=== PATIENT | female | born 1975 | race Hispanic/Latino ===

== ENCOUNTER 2022-11-01 18:15 | Emergency (ER) | payer OTHER, SELFPAY ==
[2022-11-01 18:30] VITALS: BP 150/86; PULSE 75; RESP 16; TEMP 36.1; O2SAT 100
[2022-11-01 18:35] VITALS: BP 150/86; PULSE 75; RESP 16; TEMP 36.1; O2SAT 100
--- NOTE | 2022-11-01 18:35 | ED.GENADULT ---
HPI - General Adult General Chief complaint: Unspecified Stated complaint: blurry vision, elevated heart rate, lightheaded Time Seen by Provider: 11/01/22 18:28 Source: patient Mode of arrival: ambulatory Limitations: no limitations History of Present Illness HPI narrative: 47-year-old female presents with concern for an acute episode of headache, blurry vision, lightheadedness, neck redness, elevated heart rate, pressure and her eyes and her head. She reports symptoms have improved but have not resolved. She reports she took Tylenol and took an estrogen tablet that she had at home. She denies history of high blood pressure. She reports similar episodes to this that have happened 3 times in the last several months. She called her primary doctor who told her to go to the emergency room MD complaint: Headache Related Data Home Medications Medication Instructions Recorded Confirmed levothyroxine 125 mcg tablet 125 mcg PO DAILY 11/01/22 11/01/22 (Synthroid) Allergies Allergy/AdvReac Type Severity Reaction Status Date / Time No Known Allergies Allergy Unverified 11/01/22 18:29 Review of Systems Review of Systems: CONSTITUTIONAL: Denies malaise, chills, sweats, or fever. EYES: Reports visual changes, pain and pressure behind her eyes ENT: Denies rhinorrhea, congestion, sinus pain, otalgia or sore throat. CARDIOVASCULAR: Denies chest pain, palpitations, or edema. RESPIRATORY: Denies cough or dyspnea. SKIN: Reports skin redness MUSCULOSKELETAL: Denies back pain, joint pain, or myalgia. NEUROLOGIC: Denies numbness, weakness. Reports lightheadedness, dizziness, headache. PSYCHIATRIC: Denies anxiety or depression. All systems reviewed & are unremarkable except as noted in HPI and below PMFSH Comments At time of signature, agree with nursing past medical, surgical, social and family history. There is no relevant family history pertinent to the presenting complaint Exam Narrative: GENERAL: Well-appearing, well-nourished, and in no acute distress. HEAD: Normocephalic, atraumatic. EYES: PERRLA, sclera clear, and EOMI. No nystagmus. ENT: Nares clear, turbinates pink, no rhinorrhea or epistaxis. Mucous membranes moist. TM pearly castaneda with sharp light reflex bilaterally; no tragal tenderness. Oropharynx without erythema or lesions. Tonsils not enlarged and without exudate. NECK: Supple. No lymphadenopathy. CHEST: No respiratory distress. Clear to auscultation. No bony deformities, no asymmetry. Speaks in full sentences. HEART: Regular rate and rhythm. No murmur heard. Normal peripheral pulses. EXTREMITIES: Normal range of motion. No edema. Normal strength and sensation. SKIN: Warm, dry, no visible rash. NEURO: Alert and oriented x3. No focal deficits. Cranial nerves II through XII grossly intact PSYCH: Normal mood and affect Course Course Emergency Course: Patient is aware of, understands and agrees to reasons to be transferred to the emergency room. Anticipatory guidance given. Patient agrees to proceed via private vehicle directly to the emergency department. Portions of this record may have been created with voice recognition software Level of Care: Express Care Visit Vital Signs Vital signs: Vital Signs Temperature 97.0 F L 11/01/22 18:30 Pulse Rate 75 11/01/22 18:30 Respiratory Rate 16 11/01/22 18:30 Blood Pressure 150/86 H 11/01/22 18:30 Pulse Oximetry 100 11/01/22 18:30 Oxygen Delivery Room Air 11/01/22 18:30 Temperature 97.0 F L 11/01/22 18:30 Pulse Rate 75 11/01/22 18:30 Respiratory Rate 16 11/01/22 18:30 Blood Pressure 150/86 H 11/01/22 18:30 Pulse Oximetry 100 11/01/22 18:30 Oxygen Delivery Room Air 11/01/22 18:30 Reviewed. Transfer Transfered to: [facility] Transportation: Other (Private vehicle) Transfer rationale: Headache, dizziness Accepting physician: Dmitriy Medical Decision Making [facility] Narrative Medical decision making narrative: Exam findings a
== END 2022-11-01 18:38 | disposition short-term general hospital (02) ==
PROVIDERS: Emergency Provider Nurse Practitioner; PCP Internal Medicine Gastroenterology
DX: R51.9 Headache, unspecified (principal)
CPT/HCPCS: 99203; G0463

== ENCOUNTER 2022-11-01 18:55 | Emergency (ER) | payer OTHER, SELFPAY ==
[2022-11-01 19:05] VITALS: BP 145/81; PULSE 83; RESP 16; TEMP 37.2; O2SAT 100
--- NOTE | 2022-11-01 19:12 | ECG_ITS ---
Measurements Intervals [place] Rate: 71 P: 41 LA: 181 QRS: 0 QRSD: 88 T: 1 QT: 375 QTc: 410 Interpretive Statements SINUS RHYTHM WITH SINUS ARRHYTHMIA MODERATE VOLTAGE CRITERIA FOR LVH, CONSIDER NORMAL VARIANT [MEETS CRITERIA IN ONE OF: R(aVL), S(V1), R(V5), R(V5/V6)+S(V1)] CAN NOT RULE OUT ANTERIOR INFARCTION NONSPECIFIC T-WAVE ABNORMALITY ABNORMAL ECG NO PREVIOUS ECG AVAILABLE FOR COMPARISON Electronically Signed On 11-02-2022 14:09:39 [employer] ARCHITECT CONSULTANT by Jonathan Do M.D.
[2022-11-02 00:08] VITALS: BP 128/80; PULSE 75
[2022-11-02 00:11] VITALS: BP 131/94; PULSE 83
[2022-11-02 00:12] LABS: Basophils Percent Auto 0.3 % (0.2-1.2); Eosinophils Absolute Auto 0.1 K/mm3 (0-0.3); Eosinophils Percent Auto 0.9 % (0-4.4); Hematocrit 38.7 % (37.0-47.0); Hemoglobin 12.3 g/dL (12.0-15.0); Immature Granulocyte Absolute 0.01 K/mm3 (0.00-0.031); Immature Granulocyte Percent A 0.2 % (0-0.5); Lymphocytes Absolute Auto 1.68 K/mm3 (0.9-3.2); Lymphocytes Percent Auto 25.7 % (18.3-44.2); Mean Corpuscular HGB Conc 31.8 g/dl (32-36); Mean Corpuscular Hemoglobin 29.7 pg (26-34); Mean Corpuscular Volume 93.5 fl (80-100); Mean Platelet Volume 10.7 fl (7.4-10.4); Monocytes Absolute Auto 0.4 K/mm3 (0.1-0.6); Monocytes Percent Auto 6.3 % (2.6-8.5); Neutrophils Absolute Auto 4.4 K/mm3 (1.3-6.7); Neutrophils Percent Auto 66.6 % (45.5-73.1); Platelet Count Result 196 k/mm3 (150-375); Red Blood Count 4.14 M/mm3 (4.2-5.4); Red Cell Distribution Width 14.8 % (11.5-14.5); White Blood Count 6.5 K/mm3 (4.5-10.0)
[2022-11-02 00:13] VITALS: BP 134/105; PULSE 76
[2022-11-02 00:23] LABS: Alanine Aminotransferase 19 U/L (6-35); Albumin Level 4.3 g/dL (3.5-5.1); Alkaline Phosphatase 73 U/L (38-126); Anion Gap 2 mmol/L (8-16); Aspartate Amino Transferase 27 U/L (14-36); Bilirubin,Total 0.6 mg/dL (0.2-1.3); Blood Urea Nitrogen 12 mg/dL (7-17); Calcium 8.8 mg/dL (8.4-10.2); Carbon Dioxide 31 mmol/L (22-30); Chloride 106 mmol/L (98-107); Estimated CRCL calculation 92 ml/min; Estimated Glomerular Filt Rate > 60; Glucose 89 mg/dL (65-110); Lactic Acid Reflex 0.5 mmol/L (0.7-2.0); Potassium 3.6 mmol/L (3.4-5.0); Sodium 139 mmol/L (137-145)
[2022-11-02 00:29] LABS: Appearance Urine Clear (Clear); Bilirubin Urine Negative (Negative); Blood Urine Trace-intact (Negative); Color Urine Yellow (Yellow); Glucose Urine UA Negative (Negative); Ketones Urine 1+ mg/dL (Negative); Leukocyte Esterase Ur Negative LEU/UL (Negative); Nitrate Urine Negative (Negative); Protein Urine Negative (Negative); Specific Grav Ur 1.025 (1.001-1.035); Urobilinogen Urine 0.2 mg/dL (<2.0)
[2022-11-02 00:33] LABS: Bacteria Urine Trace /hpf; Mucus Urine Rare /lpf; Squamous Epithelial Cell Urine Many /hpf (Few); WBC Urine 0-3 /hpf
[2022-11-02 00:40] LABS: Troponin I < 0.012 ng/mL (0.000-0.034)
[2022-11-02 00:41] LABS: Add Urine Microscopic? YES
--- NOTE | 2022-11-02 01:38 | ED.GENADULT ---
HPI - General Adult General Chief complaint: Neuro Symptoms/Deficit Stated complaint: headache, blurry vision, elevated HR 25 min Time Seen by Provider: 11/01/22 23:23 History of Present Illness HPI narrative: Patient 47-year-old female who presents the emergency department with chief complaint of lightheadedness and palpitations. The patient reports she has been having some episodes where she feels as though her heart is beating heavy and then she becomes lightheaded and had some blurry vision. Patient reports her symptoms have resolved now that she is feeling much better. Patient denies chest pain denies shortness of breath patient denies focal neurological deficit. Related Data Home Medications Medication Instructions Recorded Confirmed levothyroxine 125 mcg tablet 125 mcg PO DAILY 11/01/22 11/01/22 (Synthroid) Allergies Allergy/AdvReac Type Severity Reaction Status Date / Time No Known Allergies Allergy Unverified 11/01/22 18:29 Review of Systems Review of Systems: A 10 system review of systems was completed on the patient and is negative except for what is stated in the HPI. Nursing and ancillary documentation was reviewed. Exam Narrative: GENERAL: Well-appearing, well-nourished, and in no acute distress. HEAD: Normocephalic, atraumatic. EYES: PERRLA and EOMI. ENT: Nares clear, no rhinorrhea or epistaxis. Mucous membranes moist. NECK: Supple. CHEST: Clear to auscultation. No respiratory distress. HEART: Regular rate and rhythm. No murmur heard. Normal peripheral pulses. ABDOMEN: Soft, nontender, nondistended, normal active bowel sounds. EXTREMITIES: Normal range of motion. No edema. SKIN: Warm, dry, no rash. NEURO: No focal deficits. Alert and oriented x3. NIH 0 PSYCH: Normal mood and affect. Course Course Emergency Course: Differential diagnosis includes dysrhythmia, electrolyte abnormality anemia, acute visual disturbance, EKG is sinus rhythm rate of [address] elevation or ST depression The patient has no focal neurological deficits in the emergency department urinalysis showed no evidence of UTI electrolytes showed a potassium of 3.6 and a normal lactic acid magnesium was 2.0 CBC showed a hemoglobin of 12.3 and a white blood cell count of 6.5. Patient be discharged home to follow-up with her primary care provider Vital Signs Vital signs: Vital Signs Temperature 37.2 C 11/01/22 19:05 Pulse Rate 83 11/01/22 19:05 Respiratory Rate 16 11/01/22 19:05 Blood Pressure 145/81 H 11/01/22 19:05 Pulse Oximetry 100 11/01/22 19:05 Oxygen Delivery Room Air 11/01/22 19:05 Temperature 37.2 C 11/01/22 19:05 Pulse Rate 76 11/02/22 00:13 Respiratory Rate 16 11/01/22 19:05 Blood Pressure 134/105 H 11/02/22 00:13 Pulse Oximetry 100 11/01/22 19:05 Oxygen Delivery Room Air 11/01/22 19:05 Medical Decision Making Vital Signs Vital Signs: Vital Signs Temperature 37.2 C 11/01/22 19:05 Pulse Rate 83 11/01/22 19:05 Respiratory Rate 16 11/01/22 19:05 Blood Pressure 145/81 H 11/01/22 19:05 Pulse Oximetry 100 11/01/22 19:05 Oxygen Delivery Room Air 11/01/22 19:05 Temperature 37.2 C 11/01/22 19:05 Pulse Rate 76 11/02/22 00:13 Respiratory Rate 16 11/01/22 19:05 Blood Pressure 134/105 H 11/02/22 00:13 Pulse Oximetry 100 11/01/22 19:05 Oxygen Delivery Room Air 11/01/22 19:05 Lab Data 11/02/22 00:00 11/02/22 00:00 Labs: Lab Results 11/02/22 11/02/22 11/02/22 Range/Units 00:00 00:00 00:00 WBC 6.5 (4.5-10.0) K/mm3 RBC 4.14 L (4.2-5.4) M/mm3 Hgb 12.3 (12.0-15.0) g/dL Hct 38.7 (37.0-47.0) % MCV 93.5 (80-100) fl MCH 29.7 (26-34) pg MCHC 31.8 L (32-36) g/dl RDW 14.8 H (11.5-14.5) % Plt Count 196 (150-375) k/mm3 MPV 10.7 H (7.4-10.4) fl Immature Gran % (Auto) 0.2 (0-0.5) % Neut % (Auto) 66.6 (45.5-73.1) % Lymph % (Auto) 25.7
[2022-11-02 02:01] VITALS: BP 130/90; PULSE 77; RESP 20; O2SAT 99
== END 2022-11-02 02:03 | disposition home or self-care (01) ==
PROVIDERS: Emergency Provider Emergency Medicine
DX: R00.2 Palpitations (principal); R94.31 Abnormal electrocardiogram [ECG] [EKG]
CPT/HCPCS: 36415; 80053; 81001; 83605; 83735; 84484; 85025; 93005; 99284

== ENCOUNTER 2024-06-06 21:25 | Emergency (ER) | payer OTHER, SELFPAY ==
[2024-06-06 21:30] VITALS: BP 151/90; PULSE 94; RESP 16; TEMP 36.6; O2SAT 100
[2024-06-06] MEDS: CLINDAMYCIN 600 MG/D5W 50 ML 600 MG/50 ML PIGGYBACK 100 MG IVPB (22:07)
[2024-06-06] MEDS: TETANUS,DIPHTHERIA,AC PERTUSSIS ADULT (0.5 ML) BOOSTRIX IM (22:08)
[2024-06-06 22:20] LABS: Basophils Percent Auto 0.3 % (0.2-1.2); Eosinophils Absolute Auto 0.1 K/mm3 (0-0.3); Hematocrit 41.1 % (37.0-47.0); Hemoglobin 13.3 g/dL (12.0-15.0); Immature Granulocyte Absolute 0.03 K/mm3 (0.00-0.031); Immature Granulocyte Percent A 0.4 % (0-0.5); Lymphocytes Absolute Auto 1.92 K/mm3 (0.9-3.2); Lymphocytes Percent Auto 24.9 % (18.3-44.2); Mean Corpuscular HGB Conc 32.4 g/dl (32-36); Mean Corpuscular Hemoglobin 30.2 pg (26-34); Mean Corpuscular Volume 93.2 fl (80-100); Mean Platelet Volume 11.4 fl (7.4-10.4); Monocytes Absolute Auto 0.6 K/mm3 (0.1-0.6); Monocytes Percent Auto 7.3 % (2.6-8.5); Neutrophils Absolute Auto 5.1 K/mm3 (1.3-6.7); Neutrophils Percent Auto 66.1 % (45.5-73.1); Platelet Count Result 198 k/mm3 (150-375); Red Blood Count 4.41 M/mm3 (4.2-5.4); Red Cell Distribution Width 14.7 % (11.5-14.5); White Blood Count 7.7 K/mm3 (4.5-10.0)
--- NOTE | 2024-06-06 22:28 | ED.SKABFB ---
HPI - Skin/Abscess/Foreign Bdy General Chief complaint: Extremity Injury, Lower Stated complaint: left ankle pain Time Seen by Provider: 06/06/24 21:41 History of Present Illness HPI narrative: Patient got her leg caught around a dog leash about a week ago, started noticing some slight redness, saw her PCP who prescribed mupirocin ointment however over last few days it has gotten more red and swollen. No systemic symptoms, no nausea vomiting or fevers or chills. Related Data Home Medications Medication Instructions Recorded Confirmed levothyroxine 125 mcg tablet 125 mcg PO DAILY 11/01/22 11/01/22 (Synthroid) Allergies Allergy/AdvReac Type Severity Reaction Status Date / Time No Known Allergies Allergy Verified 06/06/24 21:35 Review of Systems Review of Systems: All systems reviewed & are unremarkable except as noted in HPI and below Exam Narrative: EXAMINATION OF ORGAN SYSTEMS/BODY AREAS: Constitutional: Vital signs per nursing GENERAL:[No acute distress, non-toxic appearing.] HEAD: Normal with no signs of head trauma. EYES: EOMI, conjunctiva normal ENT: Hearing grossly intact LUNGS: Nonlabored breathing. HEART: [Regular rate and rhythm] ABD: [Soft], [nontender to palpation] EXT: Normal range of motion SKIN: Circumferential wound around left lower leg, no purulent discharge, there is surrounding redness and slight swelling NEURO: [Alert and oriented x 3. No gross focal sensory or strength deficits.] PSYCH: Normal affect Course Vital Signs Vital signs: Vital Signs Temperature 97.8 F 06/06/24 21:30 Pulse Rate 94 06/06/24 21:30 Respiratory Rate 16 06/06/24 21:30 Blood Pressure 151/90 H 06/06/24 21:30 Pulse Oximetry 100 06/06/24 21:30 Oxygen Delivery Room Air 06/06/24 21:30 Temperature 98.2 F 06/06/24 22:40 Pulse Rate 68 06/06/24 22:40 Respiratory Rate 13 06/06/24 22:40 Blood Pressure 123/71 06/06/24 22:40 Pulse Oximetry 100 06/06/24 22:40 Oxygen Delivery Room Air 06/06/24 21:30 MDM - Skin/Abscess/Foreign Bdy MDM Narrative Medical decision making narrative: Patient with a wound to her left lower leg has become infected, she is otherwise well-appearing without any symptoms. Given dose of IV antibiotics here and will be given course of oral antibiotics to cover cellulitis. Labs are within acceptable limits and I do feel she is stable for discharge. Return precautions are discussed. Patient agrees with this plan. Lab Data 06/06/24 22:09 06/06/24 22:09 Labs: Lab Results 06/06/24 Range/Units 22:09 WBC 7.7 (4.5-10.0) K/mm3 RBC 4.41 (4.2-5.4) M/mm3 Hgb 13.3 (12.0-15.0) g/dL Hct 41.1 (37.0-47.0) % MCV 93.2 (80-100) fl MCH 30.2 (26-34) pg MCHC 32.4 (32-36) g/dl RDW 14.7 H (11.5-14.5) % Plt Count 198 (150-375) k/mm3 MPV 11.4 H (7.4-10.4) fl Immature Gran % (Auto) 0.4 (0-0.5) % Neut % (Auto) 66.1 (45.5-73.1) % Lymph % (Auto) 24.9 (18.3-44.2) % [place] % (Auto) 7.3 (2.6-8.5) % Eos % (Auto) 1.0 (0-4.4) % Baso % (Auto) 0.3 (0.2-1.2) % Lymph # (Auto) 1.92 (0.9-3.2) K/mm3 [place] # (Auto) 0.6 (0.1-0.6) K/mm3 Eos # (Auto) 0.1 (0-0.3) K/mm3 Baso # (Auto) 0.0 (0.0-0.1) K/mm3 Abs Immat Gran (auto) 0.03 (0.00-0.031) K/mm3 Absolute Neuts (auto) 5.1 (1.3-6.7) K/mm3 Absolute Nucleated RBC 0.000 (0.0-0.012) K/mm3 Nucleated RBC % 0.0 (0.0-0.2) % Sodium 139 (137-145) mmol/L Potassium 3.6 (3.4-5.0) mmol/L Chloride 105 (98-107) mmol/L Carbon Dioxide 23 (22-30) mmol/L Anion Gap 11 (4-12) mmol/L BUN 20 H (7-17) mg/dL Creatinine 0.60 L (0.7-1.0) mg/dL Estim Creat Clear Calc 106 ml/min Estimated GFR > 60 (59 - ) Glucose 91 (65-110) mg/dL Calcium 9.1 (8.4-10.2) mg/dL Discharge Plan Discharge Clinical Impression: Cellulitis Patient Disposition: Home, Self-Care Condition: Stable Instructions: Antibiotic F
[2024-06-06 22:29] LABS: Anion Gap 11 mmol/L (4-12); Blood Urea Nitrogen 20 mg/dL (7-17); Calcium 9.1 mg/dL (8.4-10.2); Carbon Dioxide 23 mmol/L (22-30); Chloride 105 mmol/L (98-107); Estimated CRCL calculation 106 ml/min; Estimated Glomerular Filt Rate > 60; Glucose 91 mg/dL (65-110); Potassium 3.6 mmol/L (3.4-5.0); Sodium 139 mmol/L (137-145)
[2024-06-06 22:40] VITALS: BP 123/71; PULSE 68; RESP 13; TEMP 36.8; O2SAT 100
== END 2024-06-06 22:45 | disposition home or self-care (01) ==
LOC: ANHED 22:38
PROVIDERS: Emergency Provider Emergency Medicine
DX: L03.116 Cellulitis of left lower limb (principal); Z23 Encounter for immunization
CPT/HCPCS: 36415; 80048; 85025; 87040; 90471; 90715; 96365; 99284

== ENCOUNTER 2025-02-26 15:49 | Outpatient (CLI) | payer OTHER, SELFPAY ==
--- NOTE | ~2025-02-26 | MM_ITS ---
EXAMINATION: MM screening ab BI w jamaal HISTORY: Screening TECHNIQUE: Craniocaudal and mediolateral oblique 3-D tomosynthesis images were obtained and synthetic 2-D images were generated. CAD analysis was submitted and interpreted. COMPARISON: No prior mammogram is available for comparison at this institution. BREAST PARENCHYMAL COMPOSITION: Dense: The breasts are heterogeneously dense, which may obscure small masses FINDINGS: There is no evidence of suspicious mass, calcification, or architectural distortion to sugg est malignancy in either breast. There has been no suspicious interval change. IMPRESSION: 1. No mammographic evidence of malignancy. 2. Recommend routine screening mammography in one year. BI-RADS Category 1: Negative Reviewed, dictated and finalized at location A.
--- OUTSIDE RECORDS SUMMARY | 2025-02-26 16:38 | XMS_ITS | Clinical Summary ---
Author Organization [facility] [employer] Address [address] [place] [address] Care Team Providers Care Machine Tool Mechanic Name Role Phone Kt Jones Primary Care Provider Source Comments [facility] [employer],non-owned Affiliates and Associated Physician Practices is amultiple site organization consisting of ambulatory clinics and hospital sitesin [place], [place], [place] and [place]. This disclosure is being madepursuant to the Care Everywhere program and may not contain all information available regarding this patient. Last updated 18.[facility] [employer] Allergies Active Allergy Reactions Criticality Noted Date Comments Latex Unknown 12/15/2022 Medications * Be aware that medications may not be up to date on this document. Alwaysverify current medications with the patient. Synthroid 125 MCG tablet Take 1 (one) tablet by mouth once daily 12/22/2023 Active Active Problems Problem Noted Date Diagnosed Date AMA (advanced maternal age) multigravida 35+, first trimester 01/30/2018 Other specified hypothyroidism 01/30/2018 Hypothyroidism affecting 09/12/2017 Maternal HPV (human papillomavirus) 05/23/2017 Overview (03/21/2018): per Dr. Jordan's records 19 weeks gestation of Hypothyroidism affecting in second [facility] Encounter for screening for cervical l ength Resolved Problems Problem Noted Date Diagnosed Date Resolved Date History of delivery, currently in first trimester 01/30/2018 03/21/2018 Family History Medical History Relation Name Comments Cancer - Other Father unsure what t ype Other Mother alive and well Relation Name Status Comments Father Alive Mother Alive Social History Tobacco Use Types Packs/Day Years Used Date Smoking Tobacco: Never Smokeless Tobacco: Never Tobacco Cessation:Counseling Given: No Alcohol Use Standard Drinks/Week Comments No 0 (1 standard drink = 0.6 oz pur e alcohol) Comments No Sex and Gender Information Value Date Recorded Sex Assigned at Not on file Legal Sex Female 2:09 PM CDT Gender Identity Not on file Sexual Orientation Not on file 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 Not on file Not on file Not on file Last Filed Vital Signs Vital Sign Reading Time Taken Comments Blood Pressure 125/85 04/05/2024 2:08 PM CDT Pulse 64 04/05/2024 2:08 PM CDT Temperature 36.7 C (98.1 F) 04/05/2024 2:08 PM CDT Respiratory Rate 16 04/28/2017 7:06 PM CDT Oxygen Saturation 98% 04/05/2024 2:08 PM CDT Inhaled Oxygen Concentration - - Weight 72.6 kg (160 lb) 04/05/2024 2:08 PM CDT Height 157.5 cm (5' 2) 04/05/2024 2:08 PM CDT Body Mass Index 29.26 04/05/2024 2:08 PM CDT Plan of Treatment Health Maintenance Due Date Last Done Comments COLOGUARD (AGES 45-75) - COL ON CA SCREENING 1977 COLON MONITORING 1977 COLONOSCOPY - COLON CA SCREENING 1977 CT COLONOGRAPHY - COLON CA SCREENING 1977 Colorectal Cancer Screening 1977 FIT - COLON CA SCREENING 1977 FLEX SIG - COLON CA SCREENING 1977 MAMMOGRAM 1977 HEPATITIS C SCREENING 06/09/1995 DTAP/TDAP/TD VACCINES (1 - Tdap) 1996 HEPATITIS B VACCINE (1 of 3 - 19+ 3-dose series) 1996 COVID-19 VACCINE (2 - 2023-2 5 season) 2024 12/19/2020 DEPRESSION SCREENING 09/12/2024 INFLUENZA VACCINE (Season Ended) 2025 SCREENING FOR DIABETES 02/23/2026 02/23/2023 PAP SMEAR 12/25/2026 12/26/2023, 12/26/2023 ZOSTER VACCINE (1 of 2) 2027 LIPID TESTING 02/24/2028 02/23/2023 HIV SCREENING Completed 02/23/2023 HIB VACCINE Aged Out No longer eligi ble based on patient's age to complete this topic HPV VACCINE Aged Out No longer eligi ble based on patient's age to complete this topic MENINGOCOCCAL (Group B) VACCINE SHARED DECISION-MAKING Aged Out No longer eligible based on patient's age to complete this topic MENINGOCOCCAL GROUPS A/C/Y/W VACCINE Aged Out No longer eligible b ased on patient's age to complete this topic PNEUMOCOCCAL VACCINE Aged Out No long er eligible based on patient's age to complete this topic Insurance MEDICAID - OUT OF [facility] [id number] [place] [address] * Guarantor: REJI PHILIP Account Type Relation to Patient Date of Phone Billing Address Personal/Family [address] * Guarantor: REJI MAIN Account Type Relation to Patient Date of Phone Billing Address Personal/Family [address] [facility] Care Teams Machine Tool Mechanic Relationship Specialty [place] [id number] [address] [facility] [address] [place] [address] PCP - General 03/13/18
--- OUTSIDE RECORDS SUMMARY | 2025-02-26 16:39 | XMS_ITS | Clinical Summary ---
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 Endocrinology Metabolism and Lipid [address] [place] [address] [place] [address] Erlinda Ibarra, WENDY Synthroid refill from Last 3 Months Immunizations Immunization Administration Dates Next Due HPV9 10/17/2019 Kina (J&J) SARS-CoV-2 Vaccination 12/19/2020 Tdap 05/23/2018 Family History Medical History Relation Name Comments Diabetes Other Family history of diabetes mellitus - Relation: Grandmother (Added by TW Conv) Hypertension Other Family history of hypertension - Relation: Grandmother (Added by TW Conv) Relation Name Status Comments Other Social History Tobacco Use Types Packs/Day Years Used Date Smoking Tobacco: Never Tobacco Cessation:Counseling Given: Not Answered Comments Unknown Sex and Gender Information Value Date Recorded Sex Assigned at Not on file Legal Sex Female 1:27 PM MECHANICAL EXPERT Gender Identity Not on file Sexual Orientation Not on file Obstetrics History Last Filed Vital Signs Vital Sign Reading Time Taken Comments Blood Pressure 119/82 12/22/2023 12:46 PM CDT Pulse 80 12/22/2023 12:46 PM CDT Temperature 36.9 C (98.4 F) 12/22/2023 12:46 PM CDT Respiratory Rate - - Oxygen Saturation - - Inhaled Oxygen Concentration - - Weight 70.5 kg (155 lb 6.4 oz) 12/22/2023 12:46 PM CDT Height 157.5 cm (5' 2) 12/22/2023 12:46 PM CDT Body Mass Index 28.42 12/22/2023 12:46 PM CDT Plan of Treatment Health Maintenance Due Date Last Done Comments Breast Cancer Screening-Mammogram 1977 Cervical Cancer Screening 1977 Colon Cancer Screening-Colonoscopy 1977 Depression Screening 1977 Hepatitis C Screening 1977 Hepatitis B Screening 1995 Regular Well Visit/Exam 18-64 1995 Covid-19 Vaccine (2 - 2023-2 5 season) 2024 12/19/2020 Influenza Vaccine (Season Ended) 2025 DTaP/Tdap/Td Vaccine (2 - Td or Tdap) 05/23/2028 05/23/2018 Pneumococcal vaccine <65 Aged Out No longer eligible based on patient's age to complete this topic Insurance [address]rina [address] Care Teams Bleach Machine Operator Relationship Specialty Start Date End Date Cam Navarro MD PCP - General Obstetrics and Gynecology 07/04/19
--- OUTSIDE RECORDS SUMMARY | 2025-02-26 16:39 | XMS_ITS | Data Portability ---
Author Organization [facility] [place] Address [address] [place] [address] Care Team Providers Care Awning Spreader Name Role Phone XIAO MARK Primary Care Provider Assessment Encounter Date Assessment Date Assessment LastModified by Organization Details LastModified Time 12/26/2023 12/26/2023 Annual gynecological exam performed. Patient will come back in a year unless there are new symptoms. [email or web address] Not available 12/26/2023 17:25:03 12/31/2024 12/31/2024 Annual gynecological exam performed. Patient will come back in a year unless there are new symptoms. [email or web address] Not available 12/31/2024 15:24:06 01/17/2025 01/17/2025 Annual gynecological exam performed. Patient will come back in a year unless there are new symptoms. [email or web address] Not available 01/17/2025 14:36:46 Plan of Treatment Reminders Order Date Submit Date Provider Last Modified By Organization Details Last Modified Time Details Appointments None recorded. Lab hbcab (hepatitis B core Ab) igm, serum 2024 025 [facility] (Lab), [address] [place], [address], 5 10:34:06 HBsAg (hepatitis B surface Ag), serum 2024 025 [facility] (Lab), [address] [place], [address], 5 10:34:05 hepatitis C virus Ab, serum 2024 025 [facility] (Lab), [address], [place], [address], 5 10:34:05 HIV 1+2 AB + HIV 1 p24 Ag, qualitativ e immunoassa y, serum 2024 025 [facility] (Lab), [address], [place], [address], 5 10:34:04 RPR (rapid plasma reagin), serum 2024 025 [facility] (Lab), [address], [place], [address], 5 10:34:06 infectious disease panel 2024 025 [facility] [facility], [address], [place], [address], 5 10:01:12 urinalysis , dipstick 2024 025 [email or web address] Tristan, [address], [address], [place], [address], 5 18:18:26 pap, IG + HR HPV - HPV regardless but if HPV is positive need subtyping 16,18/45ad d STI to pap GC/CT/Tric h 2024 025 [facility] (Lab), [address], [place], [address], 5 12:12:45 urinalysis , dipstick 2024 025 [email or web address] Tristan, [address], [address], [place], [address], 5 15:09:49 hormone panel, serum or plasma 2024 025 [facility] (Lab), [address], [place], [address], 5 15:59:52 testostero ne free/testo sterone total, ratio, serum 2024 025 [facility] (Lab), [address], [place], [address], 5 15:59:53 prolactin, serum 2024 025 [facility] ([facility]), [address], [place], [address], 5 15:59:52 progestero ne, serum 2024 025 [facility] ([facility]), [address], [place], [address], 5 15:59:51 urinalysis , dipstick [address], [address], [place], [address], 17:40:44 culture, urine 2023 024 [facility] ([facility]), [address], [place], [address], 4 07:44:59 test, urine 2023 [address], [address], [place], [address], 4 17:40:45 Referral None recorded. Procedures None recorded. Surgeries None recorded. Imaging MAMMO, screening, digital, bilateral 2024 025 [facility], [address], [place] [address], [place], [address], 04:08:21 Medication Orders Macrobid 100 mg capsule 2024 025 [facility] #[id number], [address], [place], [place], [id number], 5 15:38:56 fluconazol e 150 mg tablet 2024 025 [facility]70, [address] [place], [id number], 5 15:40:55 Diflucan 150 mg tablet 2024 025 [facility]92558, [address] [place], [id number], 5 15:25:25 clotrimazo le-betamet hasone 1 %-0.05 % topical cream 2024 025 [facility]02978, [address], [id number], 5 15:25:16 Cipro 500 mg tablet 2024 025 [facility]22141, [address] [place], [id number], 5 15:25:53 fluconazol e 150 mg tablet [email or web address] [place] [address] [facility]67, [address] [place], [id number], 5 15:25:14 nystatin-t riamcinolo ne 100,000 unit/gram- 0.1 % topical ointment 2022 024 [facility]26801, [address] [place], [id number], 4 17:26:07 Macrobid 100 mg capsule 2022 023 [email or web address] 1 [facility] #57718, [address], [place], [place], [id number], 17:25:48 Patient TargetsNo targets recorded. Patient InstructionsNo instructions recorded. Reason for Referral None Reported. Results Created Date Observation Date Name Description Value Unit Range Abnormal Flag Note LastModifiedBy Organization Detail LastModifiedTime 07/20/2007/20/2023 urina lysis , dipst ick Leukocytes TRACE Not Available Annie franks [address], [place], [address], 07/20/2023 15:57:36 07/20/20 23 07/20/2023 urina lysis , dipst ick Nitrite NEGATI VE Not Available [place] [address], [place], [address], 07/20/2023 15:57:36 07/20/20 23 07/20/2023 urina lysis , dipst ick Protein TRACE Not Available [facility] [place] [address], [place], [address], 07/20/2023 15:57:36 07/20/20 23 07/20/2023 urina lysis , dipst ick pH 5 Not Available [place] [address], [place], [address], 07/20/2023 15:57:36 07/20/20 23 07/20/2023 urina lysis , dipst ick Specific [place] 1.030 Not Available Lily norman [address], [place], [address], 07/20/2023 15:57:36 07/20/20 23 07/20/2023 urina lysis , dipst ick Ketone +3 Not Available [place] [address], [place], [address], 07/20/2023 15:57:36 07/20/20 23 07/20/2023 urina lysis , dipst ick Bilirubin NEGATI VE Not Available [place] [address], [place], [address], 07/20/2023 15:57:36 07/20/20 23 07/20/2023 urina lysis , dipst ick Glucose NORMAL Not Available [place] [address], [place], [address], 07/20/2023 15:57:36 12/26/19 24 12/26/2023 CULTU RE: URINE result report SEE RESULT S BELOW Test: Cultu re: Urine Speci men Sourc e: Urine - Clean Catch Speci men Type: Urine Speci men Date: 2023 5:29 PM Resul t Date: 2023 6:39 AM Resul t Statu s: Final resul t Abnor mal: No Resul ting Lab: [facility] [address] [address] Tel: CULTU RE ----- ----- ----- --- No growt h in 1 day (dete ction level of 10,00 0 colon ies / ml.) Not Available [facility] (Lab) [address], [place], [address], 12/28/2023 07:44:59 12/26/19 24 12/26/2023 urina lysis , dipst ick Leukocytes trace Not Available [facility] Camdenaishwarya franks [address], [place], [address], 12/26/2023 17:38:01 12/26/19 24 12/26/2023 urina lysis , dipst ick Nitrite normal Not Available [place] [address], [place], [address], 12/26/2023 17:38:01 12/26/19 24 12/26/2023 urina lysis , dipst ick Urobilinogen normal Not Available [facility] cyndi [address], [place], [address], 12/26/2023 17:38:01 12/26/19 24 12/26/2023 urina lysis , dipst ick Protein trace Not Available [place] [address], [place], [address], 12/26/2023 17:38:01 12/26/19 24 12/26/2023 urina lysis , dipst ick pH 5 Not Available [place] [address], [place], [address], 12/26/2023 17:38:01 12/26/19 24 12/26/2023 urina lysis , dipst ick Blood trace Not Available [place] [address], [place], [address], 12/26/2023 17:38:01 12/26/19 24 12/26/2023 urina lysis , dipst ick Specific [place] 1.020 Not Available [facility] [address], [place], [address], 12/26/2023 17:38:01 12/26/19 24 12/26/2023 urina lysis , dipst ick Ketone +1 Not Available [place] [address], [place], [address], 12/26/2023 17:38:01 12/26/19 24 12/26/2023 urina lysis , dipst ick Bilirubin normal Not Available [facility] Camdenmariano forrester [address], [place], [address], 12/26/2023 17:38:01 12/26/19 24 12/26/2023 urina lysis , dipst ick Glucose normal Not Available [place] [address], [place], [address], 12/26/2023 17:38:01 12/26/19 24 12/26/2023 urina lysis , dipst ick Appearance normal Not Available [facility] tiny [address], [place], [address], 12/26/2023 17:38:01 12/26/19 24 12/26/2023 urina lysis , dipst ick Color normal Not Available [place] [address], [place], [address], 12/26/2023 17:38:01 12/26/19 24 12/26/2023 pregn dionicio test, urine HCG negati ve Not Available [place] [address], [place], [address], 12/26/2023 17:37:11 10/08/19 25 10/08/2024 WOMEN 'S HEALT H SWAB, ASHLEY bacterial vaginosis (bv), tma Negati ve negati ve This test detec ts ribos omal RNA from bacte ana assoc iated with bacte rial vagin osis (BV), inclu ding Lacto bacil fabián (L. gasse ri, L. crisp atus and L. jense lizy), Gardn erell a vagin carmenza, and Atopo bium vagin ae by Trans cript ion-M ediat ed Ampli ficat ion (TMA) . A singl e quali tativ e resul t is repor karina based on instr ument softw are to deter mine BV posit meredith or negat meredith statu s. Not Available [facility] (Lab) [address], [place], [address], 10/10/2024 06:34:29 10/08/19 25 10/08/2024 WOMEN 'S HEALT H SWAB, ASHLEY matthew species, tma Negati ve negati ve Not Available [facility] (Lab) [address] [place], [address], 10/10/2024 06:34:29 10/08/1910/08/2024 WOMEN 'S HEALT H SWAB, ASHLEY matthew glabrata, tma Negati ve negati ve Not Available [facility] (Lab) [address] [place], [address], 10/10/2024 06:34:29 10/08/19 25 10/08/2024 WOMEN 'S HEALT H SWAB, ASHLEY trichomonas vaginalis, tma Negati ve negati ve This assay tests for and diffe renti charlotte mireles en Chelsey da glabr elio, the Chelsey da speci es group (C. albic ans, C. tropi calis , C. parap jolynn is, C. dubli niens is), and Trich omona s vagin carmenza by Trans cript ion-M ediat ed Ampli ficat ion (TMA) . Not Available [facility] (Lab) [address] [place], [address], 10/10/2024 06:34:29 10/08/1910/08/2024 CULTU RE: URINE result report SEE RESULT S BELOW Test: Cultu re: Urine Speci men Sourc e: Urine - Clean Catch Speci men Type: Urine Speci men Date: 2024 1517 Resul t Date: 2024 0531 Resul t Statu s: Final resul t Abnor mal: No Resul ting Lab: [facility] [address] [address] Tel: [phone] CULTU RE ----- ----- ----- --- No growt h in 1 day (dete ction level of 10,00 0 colon ies / ml.) Not Available [facility] (Lab) [address] [place], [address], 10/10/2024 06:34:30 01/27/20 25 10/08/2024 PROGE STERO NE progesterone 0.17 NG/mL This assay was perfo rmed using [employer] ratio n reage nts and test kits. Value s obtai tam with other assay metho ds or kits canno t be used [facility] . Femal e Proge stero ne Range s: Folli cular phase 0.06- 0.89 ng/mL Ovula tion phase 0.12- 12.00 ng/mL Lutea l phase 1.83- 23.90 ng/mL Postm enopa usal <0.05 -0.13 ng/mL Healt hy Pregn ant Women 1st Trime ster 11.0- 44.30 2nd Trime ster 25.40 -83.3 0 3rd Trime ster 58.70 -214. [address] [facility] (Lab) [address] [place], [address], 10/12/2024 15:59:51 10/08/19 25 10/08/2024 PROLA CTIN prolactin, total 9.88 NG/mL 4.79-2 3.30 This assay was perfo rmed using [employer] ratio n reage nts and test kits. Value s obtai tam with other assay metho ds or kits canno t be used [facility] . Not Available [facility] (Lab) [address] [place], [address], 10/12/2024 15:59:52 10/08/19 25 10/08/2024 FSH, LH, ESTRA DIOL estradiol <5.0 pg/mL This assay was perfo rmed using [employer] ratio n reage nts and test kits. Value s obtai tam with other assay metho ds or kits canno t be used [facility] . Femal e Estra diol Range s: Folli cular phase 12.4- 233 pg/mL Ovula tion phase 41.0- 398 pg/mL Lutea l phase 22.3- 341 pg/mL Postm enopa usal <5-13 8 pg/mL Healt hy Pregn ant Women 1st Trime ster 154-3 243 pg/mL 2nd Trime ster 1561- 57793 pg/mL 3rd Trime ster 8525- >3000 0 pg/mL Not Available [facility] (Lab) [address], [place], [address], 10/12/2024 15:59:52 10/08/19 25 10/08/2024 FSH, LH, ESTRA DIOL FSH 47.8 mIU/m L This assay was perfo rmed using [employer] ratio n reage nts and test kits. Value s obtai tam with other assay metho ds or kits canno t be used inter friend eably . Femal es Folli cular : 3.5-1 2.5 mIU/m L Ovula tion: 4.7-2 1.5 mIU/m L Lutea l: 1.7-7 .7 mIU/m L Postm enopa use: 25.8- 134.8 mIU/m L Not Available [facility] (Lab) [address], [place], [address], 10/12/2024 15:59:52 10/08/19 25 10/08/2024 FSH, LH, ESTRA DIOL LH 20.9 mIU/m L This assay was perfo rmed using [employer] ratio n reage nts and test kits. Value s obtai tam with other assay metho ds or kits canno t be used inter [facility] eay . Femal es Mid-F ollic ular: 2.4-1 2.6 mIU/m L Mid-C ycle: 14.0- 95.6 mIU/m L Mid-L uteal : 1.0-1 1.4 mIU/m L Postm enopa use: 7.7-5 8.5 mIU/m L Not Available [facility] (Lab) [address], [place], [address], 10/12/2024 15:59:52 10/08/19 25 10/08/2024 TESTO STERO NE, FREE( DIALY SIS) AND TOTAL (LC/M S/MS) testosterone , total 21 NG/dL 2-45 For addit ional infor guadalupe mattson e refer to http: //karolyn padilla.que stdia gnost ics.c om/fa q/ Total Testo stero neLCM SMSFA Q165 (This link is being provi ded for infor whitney france/ educa desmond l purpo ses only. ) This test was devel oped and its michelle tical perfo rmanc e gera cteri stics have been deter mined by [employer] [facility] [place]. It has not been clear ed or appro beni by the U.S. Food and Drug Admin istra tion. This assay has been valid ated pursu ant to the CLIA regul ation s and is used for clini haylee purpo ses. Not Available [facility] (Lab) [address], [place], [address], 10/12/2024 15:59:52 10/08/1910/08/2024 TESTO STERO NE, FREE( DIALY SIS) AND TOTAL (LC/M S/MS) testosterone , free 2.3 pg/mL 0.1-6. 4 This test was devel oped and its michelle tical perfo rmanc e gera cteri stics have been deter mined by [employer] o[employer] s Donte ls [place], [place]. It has not been clear ed or appro beni by the U.S. Food and Drug Admin istra tion. This assay has been valid ated pursu ant to the CLIA regul ation s and is used for clini haylee purpo ses. Perfo rming Organ izati on [facility] alphonsosaud n: Site ID: AMD Name: fitaborate osttravis s Donte ls Usersnapi Trigeminamitzy Addre ss: [id number] [employer] [place], [place] Direc tor: Efren Gallardo MD PhD Not Available [facility] (Lab) [address], [place], [address], 10/12/2024 15:59:52 10/08/19 25 10/08/2024 urina lysis , dipst ick Leukocytes trace Not Available Annie franks [address], [place], [address], 10/08/2024 15:08:16 10/08/19 25 10/08/2024 urina lysis , dipst ick Protein trace Not Available [facility] [place] [address], [place], [address], 10/08/2024 15:08:16 10/08/19 25 10/08/2024 urina lysis , dipst ick pH 5 Not Available [place] [address], [place], [address], 10/08/2024 15:08:16 10/08/19 25 10/08/2024 urina lysis , dipst ick Blood +++ Not Available [place] [address], [place], [address], 10/08/2024 15:08:16 10/08/19 25 10/08/2024 urina lysis , dipst ick Specific [place] 1.020 Not Available [facility] [address], [place], [address], 10/08/2024 15:08:16 01/18/20 25 01/18/2025 UR INARY TRACT INFEC TION acinetobacte r baumannii 0.000 ppm 19.961 - 24.689 normal Not Detec karina Not Available [facility] [address], [place], [address], 01/18/2025 10:01:12 01/18/20 25 01/18/2025 UR INARY TRACT INFEC TION citrobacter freundii 0.000 ppm 23.000 - 31.881 normal Not Detec karina Not Available [facility] [address], [place], [address], 01/18/2025 10:01:12 01/18/20 25 01/18/2025 UR INARY TRACT INFEC TION enterobacter aerogenes, cloacae 0.000 ppm 23.000 - 31.535 normal Not Detec karina Not Available [facility] [address], [place], [address], 01/18/2025 10:01:12 01/18/20 25 01/18/2025 UR INARY TRACT INFEC TION enterococcus faecalis, faecium 0.000 ppm 26.000 - 31.575 normal Not Detec karina Not Available [facility] [address], [place], [address], 01/18/2025 10:01:12 01/18/20 25 01/18/2025 UR INARY TRACT INFEC TION escherichia coli 0.000 ppm 23.000 - 28.500 normal Not Detec karina Not Available [facility] [address], [place], [address], 01/18/2025 10:01:12 01/18/20 25 01/18/2025 UR INARY TRACT INFEC TION klebsiella pneumoniae, oxytoca 0.000 ppm 23.000 - 30.500 normal Not Detec karina Not Available [facility] [address], [place], [address], 01/18/2025 10:01:12 01/18/20 25 01/18/2025 UR INARY TRACT INFEC TION morganella morganii 0.000 ppm 19.961 - 24.689 normal Not Detec karina Not Available [facility] [address], [place], [address], 01/18/2025 10:01:12 01/18/20 25 01/18/2025 UR INARY TRACT INFEC TION proteus mirabilis, vulgaris 0.000 ppm 23.000 - 28.500 normal Not Detec karina Not Available [facility] [address], [place], [address], 01/18/2025 10:01:12 01/18/20 25 01/18/2025 UR INARY TRACT INFEC TION pseudomonas aeruginosa 0.000 ppm 23.000 - 28.500 normal Not Detec karina Not Available [facility] [address], [place], [address], 01/18/2025 10:01:12 01/18/20 25 01/18/2025 UR INARY TRACT INFEC TION staphylococc us aureus 0.000 ppm 26.000 - 30.902 normal Not Detec karina Not Available [facility] [address], [place], [address], 01/18/2025 10:01:12 01/18/20 25 01/18/2025 UR INARY TRACT INFEC TION streptococcu s agalactiae (group B strep) 28.877 ppm 26.000 - 32.222 abnormal Detec karina Not Available [facility] [address], [place], [address], 01/18/2025 10:01:12 01/18/20 25 01/18/2025 UR INARY TRACT INFEC TION matthew albicans, parapsilosis , tropicalis 0.000 ppm 19.961 - 30.770 normal Not Detec karina Not Available [facility] [address], [place], [address], 01/18/2025 10:01:12 01/18/20 25 01/18/2025 UR INARY TRACT INFEC TION matthew glabrata (nakaseomyce s glabratus) 0.000 ppm 23.000 - 32.138 normal Not Detec karina Not Available [facility] [address], [place], [address], 01/18/2025 10:01:12 01/18/20 25 01/18/2025 UR INARY TRACT INFEC TION matthew krusei (pichia kudriavzevii ) 0.000 ppm 23.000 - 32.271 normal Not Detec karina Not Available [facility] [address], [place], [address], 01/18/2025 10:01:12 01/18/20 25 01/18/2025 UR INARY TRACT INFEC TION serratia marcescens 0.000 ppm 23.000 - 31.204 normal Not Detec karina Not Available [facility] [address], [place], [address], 01/18/2025 10:01:12 01/18/20 25 01/18/2025 UR INARY TRACT INFEC TION streptococcu s pyogenes (group A strep) 0.000 ppm 19.961 - 24.689 normal Not Detec karina Not Available [facility] [address], [place], [address], 01/18/2025 10:01:12 01/18/20 25 01/18/2025 UR INARY TRACT INFEC TION staphylococc us saprophyticu s 0.000 ppm 19.961 - 24.689 normal Not Detec karina Not Available [facility] [address], [place], [address], 01/18/2025 10:01:12 01/18/20 25 01/18/2025 UR INARY TRACT INFEC TION staphylococc us epidermidis, haemolyticus , lugdunensis 29.939 ppm 19.961 - 24.689 abnormal Detec karina Not Available [facility] [address], [place], [address], 01/18/2025 10:01:12 01/18/20 25 01/17/2025 IMAGE GUIDE D PAP AND HPV REGAR DLESS image guided Pap, HPV regardless of Pap result SEE RESULT S BELOW CASE REPOR T: Cytol ogy Gynec ologi haylee Repor t Case: [id number] Autho asher adriane Provi kaz: Christina Bradshaw, DANIAL Lantigua cted: 01/17 1704 Order ing Locat ion: [place] [facility] Recei beni: 01/18 0821 First Ashleye n: Saray Boland, CT Speci men: Claudia petersen Pap - Image d, Cervi x STATE MENT OF ADEQU ACY: Satis facto ry for evalu ation Trans forma tion zone compo nent prese nt ----- ----- ----- ----- ----- ----- ----- ----- ----- ----- ----- ----- ----- ----- ----- ----- ----- ---- FINAL DIAGN OSIS: Negat meredith for Intra epith elial Gabriel padilla or Gina rivera (NIL) . Elect francisco capps by Saray Boland, CT on 2024 at 1003 CDT ----- ----- ----- ----- ----- ----- ----- ----- ----- ----- ----- ----- ----- ----- ----- ----- ----- ---- HPV RESUL TS: HPV mRNA E6/E7 : No HPV mRNA Detec karina NOTE: This high risk HPV mRNA assay detec ts fourt een high- risk HPV types (16, 18, 31, 33, 35, 39, 45, 51, 52, 56, 58, 59, 66, 68) witho ut diffe renti ation . COMME NT: This speci men was revie wed by a Cytot echno logis t and/o r Patho logis t (as indic ated in this repor t) after evalu ation using the Thinp rep Imagi ng Syste m. CLINI HAYLEE INFOR MATIO N: Menst rual Statu s: LMP (if appli cable ): Clini haylee Histo ry/Pr eviou s Pap: Type of Neopl fernanda (if appli cable ): Signi fican t Clini haylee Findi ngs: Other Histo ry: Hormo xochitl (if appli cable ): PAP EDUCA DESMOND L NOTE: The Pap Test is a scree nicola test with an inher ent false negat meredith rate. Liqui d-bas ed sampl ing may decre ase, but will not elimi abdullahi, false negat meredith resul ts. A negat meredith resul t does not precl ude the prese nce and/o r devel opmen t of disea se, since the prese nce of abnor mal cells in the sampl e depen ds on the locat ion of the lesio n and sampl ing techn ique. Lon nued regul ar scree nicola is the best metho d of cance r preve ntion . If repor karina cytol ogic findi ng do not corre late with physi haylee and/o r histo rical findi ngs, furth er inves tigat ion is recom pj d, as clini hung warra nted. Not Available [facility] (Lab) [address], [place], [address], 01/22/2025 11:08:59 01/18/2001/17/2025 HIV 1/2 ANTIG EN/AN TIBOD Y, REFLE X CONFI RMATI ON HIV antigen/anti body Nonrea ctive nonrea ctive HIV-1 antig en and HIV-1 /HIV- 2 antib odies were not detec karina. No labor atory evide nce of HIV infec tion. Not Available [facility] (Lab) [address], [place], [address], 02/12/2025 10:34:04 01/18/2001/17/2025 HEPAT ITIS B SURFA CE ANTIG EN hepatitis B surface antigen Non-re active non-re active This assay was perfo rmed using [employer] ratio n reage nts and test kits. Value s obtai tam with other assay metho ds or kits canno t be used inter friend eably . Not Available [facility] (Lab) [address], [place], [address], 02/12/2025 10:34:05 01/18/20 25 01/17/2025 HEPAT ITIS C ANTIB HANNAH SCREE N, REFLE X TO CONFI RMATI ON hepatitis C antibody Non-re active non-re active Antib odies to HCV Not Detec karina, does not exclu de the possi bilit y of expos ure to HCV. Not Available [facility] (Lab) [address], [place], [address], 02/12/2025 10:34:05 01/18/20 25 01/17/2025 HEPAT ITIS B CORE, IGM hepatitis B core IgM antibody Non-re active non-re active Antib odies to Hepat itis B Core IgM not detec karina. Does not exclu de the possi bilit y of expos ure to or infec tion with HBV. Corre late with other Hepat itis B serol ogies . Not Available [facility] (Lab) [address], [place], [address], 02/12/2025 10:34:06 01/18/20 25 01/17/2025 RPR SCREE N, REFLE X TITER /CONF IRMAT ION RPR qualitative Nonrea ctive nonrea ctive Not Available [facility] (Lab) [address], [place], [address], 02/12/2025 10:34:06 01/18/20 25 01/17/2025 urina lysis , dipst ick Leukocytes Trace Not Available [facility] Camdenaishwarya franks [address], [place], [address], 01/17/2025 18:17:44 01/18/2001/17/2025 urina lysis , dipst ick Nitrite + Not Available [facility] [address], [place], [address], 01/17/2025 18:17:44 01/18/20 25 01/17/2025 urina lysis , dipst ick Urobilinogen normal Not Available [facility] cyndi [address], [place], [address], 01/17/2025 18:17:44 01/18/20 25 01/17/2025 urina lysis , dipst ick Protein + Not Available [facility] [address], [place], [address], 01/17/2025 18:17:44 01/18/20 25 01/17/2025 urina lysis , dipst ick pH 5 Not Available [facility] [address], [place], [address], 01/17/2025 18:17:44 01/18/20 25 01/17/2025 urina lysis , dipst ick Blood trace Not Available [facility] [address], [place], [address], 01/17/2025 18:17:44 01/18/20 25 01/17/2025 urina lysis , dipst ick Specific [place] 1.030 Not Available [facility] [address], [place], [address], 01/17/2025 18:17:44 01/18/20 25 01/17/2025 urina lysis , dipst ick Ketone + Not Available [facility] [address], [place], [address], 01/17/2025 18:17:44 01/18/20 25 01/17/2025 urina lysis , dipst ick Bilirubin - Not Available [facility] [address], [place], [address], 01/17/2025 18:17:44 01/18/20 25 01/17/2025 urina lysis , dipst ick Glucose normal Not Available [facility] [address], [place], [address], 01/17/2025 18:17:44 01/18/2001/17/2025 urina lysis , dipst ick Appearance cloudy Not Available Annie franks [address], [place], [address], 01/17/2025 18:17:44 01/18/2001/17/2025 urina lysis , dipst ick Color yellow Not Available [facility] [address], [place], [address], 01/17/2025 18:17:44 Result Notes None recorded. Procedures Surgical History Date Name Laterality Status Provider Name and Address Organization Details Recorded Time 12/26/19 24 Date of Last Pap Smear completed Ana Zendejas [facility] 12/26/2023 17:26:48 07/15/20 22 Endometrial Biopsy completed Salomon Denson MD [address], [place], [address], [facility] 07/15/2022 20:42:10 Imaging Results None recorded. Procedure Notes None recorded. Medical Equipment None Reported. Allergies No known drug allergies Medications Name Sig Start Date Stop Date Status Note LastModified by Organization Details LastModified Time cyclobenzap rine 10 mg tablet 06/02 completed Not Available Not Available Not Available ketoconazol e 2 % shampoo 10/08 completed Not Available Not Available Not Available clindamycin HCl 300 mg capsule TAKE 1 CAPSULE BY MOUTH EVERY 6 HOURS FOR 7 DAYS 10/08 completed Not Available Not Available Not Available triamcinolo ne acetonide 0.5 % topical cream APPLY THIN LAYER TOPICALLY TO THE AFFECTED AREA TWICE DAILY active Not Available Not Available No t Available ibuprofen 800 mg tablet TAKE 1 TABLET BY MOUTH EVERY 6 TO 8 HOURS. TAKE WITH FOOD NEEDED FOR PAIN/INFL AMMATION 06/02 completed Not Available Not Available Not Available fluconazole 150 mg tablet TAKE 1 TABLET BY MOUTH NOW. REPEAT IN 72 HOURS NEEDED active Not Available Not Available No t Available valacyclovi r 1 gram tablet TAKE 1 TABLET BY MOUTH EVERY 12 HOURS FOR 1 DAY 10/08 completed Not Available Not Available Not Available metronidazo le 0.75 % (37.5 mg/5 gram) vaginal gel INSERT 1 APPLICATO RFUL VAGINALLY EVERY DAY AT BEDTIME FOR 5 DAYS 06/02 completed Not Available Not Available Not Available Synthroid 125 mcg tablet TAKE 1 TABLET BY MOUTH EVERY DAY active Not Available Not Available No t Available terconazole 0.8 % vaginal cream INSERT 1 APPLICATO RFUL VAGINALLY AT BEDTIME FOR 3 NIGHTS active Not Available Not Available No t Available metronidazo le 500 mg tablet TAKE 1 TABLET BY MOUTH TWICE DAILY 06/02 completed Not Available Not Available Not Available ciprofloxac in 500 mg tablet TAKE 1 TABLET BY MOUTH EVERY 12 HOURS 12/31 completed Not Available Not Available Not Available acyclovir 800 mg tablet TAKE 1 TABLET BY MOUTH EVERY DAY active Not Available Not Available No t Available nystatin-tr iamcinolone 100,000 unit/gram-0 .1 % topical ointment APPLY TO THE AFFECTED AREA(S) BY TOPICAL ROUTE 2 TIMES PER DAY FOR 7 DAYS 12/25 completed Not Available Not Available Not Available meloxicam 7.5 mg tablet TAKE 1 TABLET BY MOUTH EVERY DAY FOR 14 DAYS FOR PAIN 10/08 completed Not Available Not Available Not Available estradiol 1 mg tablet TAKE 1 TABLET BY MOUTH EVERY DAY 12/08 completed Not Available Not Available Not Available benzonatate 100 mg capsule TAKE 1 CAPSULE BY MOUTH THREE TIMES DAILY FOR 7 DAYS NEEDED 10/08 completed Not Available Not Available Not Available cephalexin 500 mg capsule TAKE 1 CAPSULE BY MOUTH TWICE DAILY active Not Available Not Available No t Available triamcinolo ne acetonide 0.1 % topical ointment APPLY THIN LAYER TOPICALLY TO THE AFFECTED AREA TWICE DAILY 07/20 completed Not Available Not Available Not Available nystatin 100,000 unit/gram topical cream APPLY TOPICALLY TO THE AFFECTED AREA TWICE DAILY 07/20 completed Not Available Not Available Not Available clotrimazol e-betametha sone 1 %-0.05 % topical cream 2024 active Not Available Not Available Not Avai lable progesteron e micronized 200 mg capsule TAKE 1 CAPSULE BY MOUTH EVERY DAY FOR 12 DAYS 07/28 completed Not Available Not Available Not Available fluoxetine 10 mg capsule TAKE 1 CAPSULE BY MOUTH EVERY DAY active Not Available Not Available No t Available hydrocortis one 2.5 % topical cream APPLY THIN LAYER TOPICALLY TO THE AFFECTED AREA TWICE DAILY 07/20 completed Not Available Not Available Not Available mupirocin 2 % topical ointment APPLY SMALL AMOUNT TOPICALLY TO THE AFFECTED AREA TWICE DAILY FOR 7 DAYS 10/08 completed Not Available Not Available Not Available ergocalcife rol (vitamin D2) 1,250 mcg (50,000 unit) capsule TAKE 1 CAPSULE BY MOUTH EVERY WEEK 07/20 completed Not Available Not Available Not Available ketoconazol e 2 % topical cream APPLY TOPICALLY TO THE AFFECTED AREA EVERY DAY 10/08 completed Not Available Not Available Not Available clotrimazol e 1 % topical cream active Not Available Not Available Not Available sertraline 50 mg tablet TAKE 1 TABLET BY MOUTH EVERY DAY 07/20 completed Not Available Not Available Not Available loratadine 10 mg tablet TAKE 1 TABLET BY MOUTH EVERY DAY 10/08 completed Not Available Not Available Not Available June.530 (21) 1.5 mg-30 mcg tablet TAKE 1 TABLET BY MOUTH EVERY DAY 12/08 completed Not Available Not Available Not Available ciprofloxac in 0.3 %-dexametha sone 0.1 % ear drops,suspe nsion SHAKE LIQUID AND INSTILL 4 DROPS TO AFFECTED EAR TWICE DAILY FOR 7 DAYS 12/25 completed Not Available Not Available Not Available nitrofurant oin monohydrate /macrocryst als 100 mg capsule TAKE 1 CAPSULE BY MOUTH EVERY 12 HOURS FOR 7 DAYS active Not Available Not Available No t Available cholecalcif vaibhav (vitamin D3) 1,250 mcg (50,000 unit) capsule TAKE 1 CAPSULE BY MOUTH EVERY WEEK active Not Available Not Available No t Available Vitals Date Recorded Body height Body mass index (BMI) Body weight Systolic blood pressure Diastolic blood pressure Provider Name and Address Organization Details Last Updated DateTime 10/08/2024 158.75 cm 29.3 kg/m2 32910.56 g 133 mm[Hg] 87 mm[Hg] Olivia Francis [facility] 5 15:06:05 Date Recorded Body height Body mass index (BMI) Body weight Systolic blood pressure Diastolic blood pressure Provider Name and Address Organization Details Last Updated DateTime 12/26/2023 158.75 cm 28.3 kg/m2 71126 g 123 mm[Hg] 79 mm[Hg] Ana Zendejas [facility] 4 17:25:34 Date Recorded Body height Body mass index (BMI) Body weight Systolic blood pressure Diastolic blood pressure Provider Name and Address Organization Details Last Updated DateTime 12/31/2024 158.75 cm 29.2 kg/m2 00884.96 g 140 mm[Hg] 89 mm[Hg] Olivia Tito [facility] 5 15:24:47 Date Recorded Body height Provider Name an d Address Organization Details Last Updated DateTime 01/17/2025 158.75 cm Marianna Hathaway [facility] 01/17/2025 14:37:05 Date Recorded Body height Body mass index (BMI) Body weight Systolic blood pressure Diastolic blood pressure Provider Name and Address Organization Details Last Updated DateTime 07/20/2023 158.75 cm 27.4 kg/m2 69448.04 g 113 mm[Hg] 75 mm[Hg] Belia Huang [facility] 3 15:28:41 Social History Question Answer Notes LastModified by Organizat ion Details LastModified Time Tobacco Smoking Status Never Smoker Ana Zendejas [facility], [facility] 12/26/2023 17:34:57 Are You Blind Or Do You Have Difficulty Seeing? No [email or web address] Information not available 12/26/2023 What Is Your Level Of Caffeine Consumption? Occasional [email or web address] Information not available 12/26/2023 In The 14 Days Before Symptom Onset, Have You Had Close Contact With A Laboratory-conf irmed COVID-19 While That Case Was Ill? No [email or web address] Information not available 12/26/2023 Have You Been To An Area Known To Be High Risk For COVID-19? No Information not available 12/26/2023 Are You Deaf Or Do You Have Serious Difficulty Hearing? No [email or web address] Information not available 12/26/2023 What Type Of Diet Are You Following? REGULAR [email or web address] Information not available 12/26/2023 Do You Use Your Seat Belt Or Car Seat Routinely? Yes [email or web address] Information not available 12/26/2023 Do You Have Smoke And Carbon Monoxide Detectors In Your Home? Yes [email or web address] Information not available 12/26/2023 Do You Use Sunscreen Routinely? Yes [email or web address] Information not available 12/26/2023 Has Tobacco Cessation Counseling Been Provided? No Information not available 12/26/2023 Do You Have Difficulty Walking Or Climbing Stairs? No [email or web address] Information not available 12/26/2023 Sex: Unknown Functional Status Question Answer Note LastModified by Organizat ion Details LastModified Time Do you use any illicit or recreational drugs? No Information not available 12/26/2023 Do you or have you ever used any other forms of tobacco or nicotine? No Information not available 12/26/2023 What is your level of alcohol consumption? None Information not available 12/26/2023 Are you able to walk? YESWOREST [email or web address] Information not available 12/26/2023 Are you able to care for yourself? Yes [email or web address] Information n ot available 12/26/2023 Do you have difficulty dressing or bathing? No [email or web address] Information not available 12/26/2023 What is your exercise level? Occasional [email or web address] Information not available 12/26/2023 Mental Status Question Answer Note LastModified by Organization D etails LastModified Time Do you feel stressed (tense, restless, nervous, or anxious, or unable to sleep at night)? [id number] [email or web address] Information not available 12/26/2023 Family History Relationship Description Onset Age of this Age Resolved Age Notes LastModified by Organization Details LastModified Time Maternal Grandmother Heart disease [email or web address] Not available 2021 18:51:55 Medical History Condition Response Allergies (Food, seasonal, environmental ) Y Other N Drug/Latex Allergies/Reactions N Blood Transfusion N Breast Cancer N Dermatologic Disorders N Lung Disease N Defects or Inherited Disease N Breast Problem N Gestational Diabetes N Hematologic disorders N Anesthesia Complications N History of STI Y Deep Vein Thrombosis N Polycystic ovary syndrome N Anxiety Disorder Y Autoimmune disease N Arthritis N Polyps N Infertility N Acid Reflux (GERD) N History of abnormal pap N Cancer N Varicosities N Stroke N Neurologic/Epilepsy N Endometriosis N High Cholesterol N Fibromyalgia N Headaches N Kidney Disease N Heart Problems N Thyroid Problems Y Kidney or Bladder Problems N GI Problems N Eating Disorder N Anemia N Art (IVF or FET) N Psychiatric Illness N Ovarian Cancer N Diabetes N Pulmonary (TB, Asthma) N Hepatitis/Liver Disease N No Past Medical History N Eczema N Urinary Tract Infection N Abuse/Domestic Violence N Asthma N Trauma/Violence N Depression/ depression Y Heart Disease N Pre-Eclampsia N Hypertension N Osteoporosis N Thrombophilias N Gynecological History Statement/Question Response Abnormal Pap Y Date of Last Mammogram Sexually Active? Y STIs/STDs Y Date of DEXA bone scan HPV Vaccine N Date of Last Pap Smear 12/26/2023 Sexual Problems? N Current Control Method None LMP Approximate Obstetrics History GPAL:G 5 P 4 0 1 4 Type Value Full Term 4 Spontaneous 1 Living 4 Total 5 Past Encounters Encounter ID Performer Location Encounter Start Date Encounter Closed Date Diagnosis/Indication Diagnosis SNOMED-CT Code Diagnosis ICD10 Code Diagnosis Note [id number] Salomon Denson MD [facility] [address] [address] 11/18/2021 18:05:05 11/19/2021 14:18:11 Vaginitis 47855740 N76.0 Dyspareunia 76004005 N94 .10 Gynecologi c examination 98606048 Z01.419 This patient is here for her annual exam. A thorough history was taken. A physical exam was performed. Age appropriat e routine health screening was ordered, performed, and discussed. Recommende d testing was ordered. She was asked to follow up in one year. She will be informed of any test results. Mammogram - ordered Colonoscop y - na Bone Density - na Cholestero l - ordered Pap - today [id number] Salomon Denson MD [facility] [address] [address] 12/21/2021 17:27:24 12/21/2021 18:07:48 Dyspareunia 13916111 N94.10 [id number] Salomon Denson MD [facility] [address] [address] 12/30/2021 17:39:56 12/30/2021 18:41:19 Dyspareunia 72778606 N94.10 This patient is a 46-year-ol d female presents for follow-up on dyspareuni a. She has deep penetratio n discomfort . She states that it feels like something is malpositio tam after intercours e. That something is still within the vagina. The pelvic ultrasound was normal. We reviewed those results. We talked about just observing the problem. She agreed to that. We spent 15 minutes face-to-fa ce discussing the ultrasound results and possible Diagnoses. She will follow-up as needed. [id number] Salomon Denson MD [facility] [address] [address] 06/02/2022 18:05:27 06/03/2022 14:50:01 Vaginitis 24996343 N76.0 Menopausal symptom 47895 002 N95.1 this patient is a 46-year-ol d female presents for menopausal symptoms. She has had regular periods most of this year. She had 2 episodes were she has had some irregular bleeding. She may be in early menopause. She understand s that there is no way to know by testing. We did agree to test sex hormones. We also are going to obtain a pelvic ultrasound for the irregular bleeding. She has episodes of irregularl y irregular bleeding. She reports hot flashes, night sweats. She also reports more pain with sex. She has deep penetratio n pain. She feels like something is getting hit. We agreed to continue evaluation and observatio n of that. She was in for that problem before but we had a normal ultrasound in observe the problem. I am sure that time we discussed diagnostic laparoscop y. We spent more than 40 minutes face-to-fa ce. More than 50% was counseling . Talked about menopausal symptoms, the menstrual cycle, hormones. Treatment of menopausal symptoms. The etiology and timing of menopause. Talked about pain with intercours e. Talked about the etiology, natural history, causes of pain with intercours e. Talked about the evaluation . Dyspareunia [id number] N94 .10 [id number] Salomon Denson MD [facility] [address] [address] 06/08/2022 17:35:20 06/08/2022 18:10:39 Irregular periods 02982171 N92.6 [id number] Salomon Denson MD [facility] [address] [address] 06/30/2022 18:21:05 07/01/2022 09:19:10 Abnormal uterine bleeding [id number] 9100 N93.9 this patient is a 47-year-ol d female presents for abnormal uterine bleeding. She has had several months of abnormal uterine bleeding. She was evaluated with ultrasound and laboratory evaluation . Laboratory evaluation is on supportive of perimenopa use or polycystic ovarian syndrome. She is working on control of her thyroid. This may be why she is having abnormal bleeding. We spent over 20 minutes face-to-fa ce. More than 50% was counseling . She has had some very heavy bleeding lately. Her bleeding was treated with high-dose oral contracept meredith pills. Is already starting to wane. The high-dose oral contracept meredith pills were started yesterday. We agreed endometria l biopsy. The ultrasound findings were consistent with a thickened endometriu m that was vascular. We agreed to follow-up for endometria l biopsy. We will likely discontinu e control pills and see what happens with her bleeding. With her thyroid controlled it may get back to normal. [id number] Salomon Denson MD [facility] [address] [address] 07/15/2022 17:02:05 07/16/2022 14:09:12 Abnormal uterine bleeding [id number] 9100 N93.9 endometria l biopsy was performed. It was tolerated well. We agreed to start micronized progestero ne at mg. Her bleeding has not been controlled with oral contracept meredith pills. She will follow-up in 2 weeks [id number] Salomon Denson MD [facility] [address] [address] 07/28/2022 16:44:35 07/29/2022 11:50:24 Menopausal symptom 45411841 N95.1 this patient is a 47-year-ol d female presents for anxiety and menopausal symptoms. She has night sweats and hot flashes during the day. She is sleeping poorly. She is unable sleep at night because of anxiety and menopausal symptoms. Talked about treatment options. We discussed the etiology, natural history and treatment of hot flashes and anxiety. We spent more than 40 minutes face-to-fa ce. More than 50% was counseling . Discussed these 2 complex problems. We agreed to treat with FLOX a teen and hormone replacemen t therapy. The hormone placed there is to consist of estradiol and progestero ne. We talked about the risk of hormone replacemen t therapy. She understand s risks is ready to proceed. The preferred medication was prescribed and she was given precaution s on the medication . Anxiety 70116417 F41.9 [id number] Salomon Denson MD [facility] [address],[place] [address] 12/08/2022 17:25:39 12/08/2022 18:51:46 Gynecologic examination 69947039 Z01.419 This patient is here for her annual exam. A thorough history was taken. A physical exam was performed. Age appropriat e routine health screening was ordered, performed, and discussed. Recommende d testing was ordered. She was asked to follow up in one year. She will be informed of any test results. Mammogram - ordered Colonoscop y - na Bone Density - na Cholestero l - ordered Pap - today Anxiety [id number] F41.9 flushing, headache, palpitatio n, agoraphobi a, panic Vulvovaginitis 05655905 N76.0 [id number] Salomon Denson MD [facility] [address],[place] [address] 02/23/2023 18:01:55 02/24/2023 10:52:45 Lesion of vulva 825139839 N90.89 47-year-ol d female presents with painful vulvar lesion. There is a area erythema and vesicular call grouping of lesions on the anterior left vulva in the periclitor al area near the mons. talked about possible diagnoses and treatments . We agreed to topical steroid at this time. Await testing results. Viral culture not obtained, did not look possible. No fluid present Sexually t ransmitted infectious disease [id number] A64 [id number] Christina NateyeAURELIA [facility] [address] [address] 07/20/2023 14:49:07 07/20/2023 15:54:30 Urinary symptoms 178723272 R39.9 urine cx sentrx sent, r/b/a reviewedin crease water intake, decrease carbonatio n/caffeine vulvar care guidelines discussed - recommende d to not use vaginal wipes/soap s/scented products, water/fing ers to cleanse the vulva, cotton underwear onlySTI testing declinedRT C if symptoms persist past treatment Patient is to contact office or go to nearest ED/Urgent care if fever >/= 100.1, pain, excessive bleeding, unusual drainage or swelling in area of concern; or experienci ng worsening sx's or new onset of concerning sx's. Understand ing verbalized . All questions answered to patient satisfacti on. Time spent in visit is a total of 30 mins with at least 50% of visit consisting of counseling and review of plan of care. Vulval irritation 408478 003 N90.89 [id number] Salomon Denson MD [facility] [address] [address] 12/26/2023 17:04:43 12/26/2023 17:51:35 Contraception care management [id number] Z30.9 Urinary symptoms 6215002 08 R39.9 Pruritus of vulva 002329 00 L29.2 Gynecologi c examination 59220528 Z01.419 Z11.51 This patient is here for her annual exam. A thorough history was taken. A physical exam was performed. Age appropriat e routine health screening was ordered, performed, and discussed. Recommende d testing was ordered. She was asked to follow up in one year. She will be informed of any test results. Mammogram - ordered Colonoscop y - na Bone Density - na Cholestero l - ordered Pap - today [id number] Salomon Denson MD [facility] [address] [address] 10/08/2024 14:33:48 10/08/2024 16:33:27 Dysuria 35894605 R30.0 Acute urin elliot tract infection 803571486 N39.0 Menopausal symptom 48719 002 N95.1 Vaginitis 12524364 N76.0 this patient is a 49-year-ol d female with multiple complaints . She reports dysuria. She reports vaginal discharge. She reports menopausal symptoms. She has hot flashes during the day. She gets flush over her neck. She has trouble sleeping. She has some mild night sweats. Her bleeding is irregular. We agreed to check her sex hormones. We will consider those results in discussed them with her. She also claims of white vaginal discharge. It is thick. Also related to some vulvar irritation . We agreed to treat for vulvovagin itis. She was treated with the antifungal orally and a topical antifungal / steroid cream. She was given instructio ns, precaution s and risks, benefits, and alternativ es. She has dysuria. We checked her urine. Urine dip suggestive of urinary tract infection. We agreed to treat for urinary tract infection. She is prescribed antibiotic s. She was given prescripti on, precaution s, instructio ns. I explained the risks, benefits, and alternativ es to the patient. I spent over 30 minutes on her care in total. [id number] Salomon Denson MD [facility] [address] [address] 12/31/2024 15:14:15 12/31/2024 18:28:16 [id number] AURELIA Conley [facility] [address] [address] 01/17/2025 14:24:43 01/18/2025 11:33:49 Gynecologic examination 27844798 Z01.419 WWEBC - declinedPa p - done todaySTI screen - gc/ct/tric h testing added to pap per pt requestHIV /Hep B&C/Syphil is testing ordered per pt requestMam mogram - order givenColon cancer screening - Options discussed, opts for cologuard orderRouti ne labs - PCPRTC in 1 yr or sooner if needed Suggested Calcium with Vitamin D daily. Patient advised to get an annual flu shot in the fall and she could obtain at local pharmacy. Also to obtain TDap vaccinatio n if you have not had one in the last 10 years. Recommend yearly mammograms . Encouraged monthly self breast exams. Encourage safe sexual practices, to use condoms and limit partners if not already in a monogamous relationsh ip. Engage in regular exercise. Avoid tobacco and illicit drugs. This lifestyle behavior pattern will lead to less health conditions and longer life span. If BMI greater than 25 dietary consult advised. All questions have been answered. Screening mammography [id number] Z12.31 Urinary symptoms [id number] R39.9 Ua done, cx sentrx sent for macrobid, r/b/a reviewed Venereal d isease screening 888030921 Z11.3 Sexually t ransmitted infectious disease [id number] A64 Acute vaginitis [id number] N76.0 rx sent for yeastvulva r care guidelines discussed Time spent in visit is a total of 30 mins with at least 50% of visit consisting of counseling and review of plan of care. Health Concerns Section Related Observation LastModified by Organization Detai ls LastModified Time None Recorded Concern Status LastModified by Organization Details LastModified Time None Recorded Advance Directives Directive None Recorded Payers Insurance Date Sequence Insurance Name Policy Number Policy Norris Covered Member ID Norris Member ID Guarantor Name 01/21/2025 1 [facility] (MEDICAID HMO) [id number] Leatha Anton [id number] Orihyun Hankins n Notes Date Note Type Note Provider Name and Address Organization Details Recorded Time 3 text/html 48yopresents for urinary burning and frequencysymptoms started 2-3 days agodrinking increased amounts of soda/carbonationuses wipes multiple times per day to cleanse the vulva, has noticed some vulvar irritation from thisdenies any new partnersneg flank painsneg n/v/fneg pelvic painneg vaginal discharge or odors KANNAN Celaya translated for appointment (prydeinig speaking) AURELIA Conley [address], [place], [address], [facility] 07/20/2023 15:53:16 04/15/202 4 text/html Annual GYNReported bypatient.History:no gynecologic complaints Menstrual cycle:Normal menses Urinary symptoms:No hematuria Vulva:No genital lesion Vagina:Normal vaginal discharge Breast:No breast pain Sexual complaints:No sexual complaints; No pain during intercourse Menopausal Symptoms:No menopausal symptoms Psychological symptoms:No depression; No anxiety Preventive measures:Encourage self breast examination; Encourage regular exercise Salomon Denson MD [address], [place], [address], [facility] 12/26/2023 17:49:31 5 text/html this patient is a 49-year-old female with multiple complaints. She reports dysuria. She reports vaginal discharge. She reports menopausal symptoms. She has hot flashes during the day. She gets flush over her neck. She has trouble sleeping. She has some mild night sweats. Her bleeding is irregular. We agreed to check her sex hormones. We will consider those results in discussed them with her. She also claims of white vaginal discharge. It is thick. Also related to some vulvar irritation. We agreed to treat for vulvovaginitis. She was treated with the antifungal orally and a topical antifungal / steroid cream. She was given instructions, precautions and risks, benefits, and alternatives. She has dysuria. We checked her urine. Urine dip suggestive of urinary tract infection. We agreed to treat for urinary tract infection. She is prescribed antibiotics. She was given prescription, precautions, instructions. I explained the risks, benefits, and alternatives to the patient. I spent over 30 minutes on her care in total. Salomon Denson MD [address], [place], [address], [facility] 10/08/2024 16:27:26 5 text/html Annual GYNReported bypatient.Menstrual cycle:Normal menses Urinary symptoms:No hematuria; No incontinence;Increased urinary frequency Vulva:No genital lesion Vagina:Normal vaginal discharge;Vaginal itching Breast:No breast pain; No breast lump; No nipple discharge Sexual complaints:No sexual complaints; No pain during intercourse; Normal libido Menopausal Symptoms:No menopausal symptoms; Normal vaginal lubrication Psychological symptoms:No depression; No anxiety; No PMDD Preventive measures:Encourage self breast examination; Encourage regular exercise; Encourage no tobacco use; Encourage regular mammograms starting age 42Notes:49yo wwelast pap 12/2023 : nilm, HPV (-)mammogram 2-3 yrs agowould like STI testing today urinary frequency, urgency, dysuriavaginal itching KANNAN Celaya translated (prydeinig speaking) via phone for duration of appt AURELIA Conley [address], [place], [address], [facility] 01/18/2025 09:52:29 OBGyn Episode Ob Episode Information Episode Created Date Number of Fetuses Patient Bloodtype Patient rh Status Prepregnancy Weight lbs Domestic Partner Domestic Partner Phone Father Name Theatrical Scenic Designer Status 11/19/19 22 1 CLOSED Fetus Data First Name Last Name Admitted to NICU Weight (g) Sex Living Outcome Pediatric Complications Fetus ID Race Codes Race Delivery Type 3572.03 7 M Full Term 20441 Vaginal Delivery José Miguel Calculation Initial José Miguel Date Initial Exam Date Initial Exam Provider Initial Ultrasound Date Last Menstrual Period Date Ultra Sound Weeks Gestation 0 Eighteen To Twenty Week José Miguel Update Ultra Sound Date Fundal Height At Umbil Quickening Date Ultra Sound Latest Weeks Gestation Final José Miguel Confirmed By Final José Miguel Confirmed Date Final José Miguel Date Ultra Sound Latest Days Gestation 0 0 Menstrual History Last Menstrual Date Menses Monthly On Bcp Conception Prior Menses Frequency Hcg Plus Date Menarche Onset Age Delivery Information Delivery Date Delivery Type Labor Anesthesia Weeks Gestation Incision Type Labor Labor Length Hrs Delivered By Post Complications Tubal Sterilization Discharge Date Comments 0 37 Discharge Information Feeding Method Contraceptive Method Maternal HG B and HCT Levels Ob Episode Information Episode Created Date Number of Fetuses Patient Bloodtype Patient rh Status Prepregnancy Weight lbs Domestic Partner Domestic Partner Phone Father Name Theatrical Scenic Designer Status 11/19/19 22 1 CLOSED Fetus Data First Name Last Name Admitted to NICU Weight (g) Sex Living Outcome Pediatric Complications Fetus ID Race Codes Race Delivery Type 3175.14 4 F Full Term [id number] Vaginal Delivery José Miguel Calculation Initial José Miguel Date Initial Exam Date Initial Exam Provider Initial Ultrasound Date Last Menstrual Period Date Ultra Sound Weeks Gestation 0 Eighteen To Twenty Week José Miguel Update Ultra Sound Date Fundal Height At Umbil Quickening Date Ultra Sound Latest Weeks Gestation Final José Miguel Confirmed By Final José Miguel Confirmed Date Final José Miguel Date Ultra Sound Latest Days Gestation 0 0 Menstrual History Last Menstrual Date Menses Monthly On Bcp Conception Prior Menses Frequency Hcg Plus Date Menarche Onset Age Delivery Information Delivery Date Delivery Type Labor Anesthesia Weeks Gestation Incision Type Labor Labor Length Hrs Delivered By Post Complications Tubal Sterilization Discharge Date Comments 8 39 placenta previa Discharge Information Feeding Method Contraceptive Method Maternal HG B and HCT Levels Ob Episode Information Episode Created Date Number of Fetuses Patient Bloodtype Patient rh Status Prepregnancy Weight lbs Domestic Partner Domestic Partner Phone Father Name Theatrical Scenic Designer Status 11/19/19 22 1 CLOSED Fetus Data First Name Last Name Admitted to NICU Weight (g) Sex Living Outcome Pediatric Complications Fetus ID Race Codes Race Delivery Type 3345.24 1 F Full Term 82398 Vaginal Delivery José Miguel Calculation Initial José Miguel Date Initial Exam Date Initial Exam Provider Initial Ultrasound Date Last Menstrual Period Date Ultra Sound Weeks Gestation 0 Eighteen To Twenty Week José Miguel Update Ultra Sound Date Fundal Height At Umbil Quickening Date Ultra Sound Latest Weeks Gestation Final José Miguel Confirmed By Final José Miguel Confirmed Date Final José Miguel Date Ultra Sound Latest Days Gestation 0 0 Menstrual History Last Menstrual Date Menses Monthly On Bcp Conception Prior Menses Frequency Hcg Plus Date Menarche Onset Age Delivery Information Delivery Date Delivery Type Labor Anesthesia Weeks Gestation Incision Type Labor Labor Length Hrs Delivered By Post Complications Tubal Sterilization Discharge Date Comments 5 38 Discharge Information Feeding Method Contraceptive Method Maternal HG B and HCT Levels Ob Episode Information Episode Created Date Number of Fetuses Patient Bloodtype Patient rh Status Prepregnancy Weight lbs Domestic Partner Domestic Partner Phone Father Name Theatrical Scenic Designer Status 11/19/19 22 1 CLOSED Fetus Data First Name Last Name Admitted to NICU Weight (g) Sex Living Outcome Pediatric Complications Fetus ID Race Codes Race Delivery Type 2863.07 2704 M Full Term 68728 Vaginal Delivery José Miguel Calculation Initial José Miguel Date Initial Exam Date Initial Exam Provider Initial Ultrasound Date Last Menstrual Period Date Ultra Sound Weeks Gestation 0 Eighteen To Twenty Week José Miguel Update Ultra Sound Date Fundal Height At Umbil Quickening Date Ultra Sound Latest Weeks Gestation Final José Miguel Confirmed By Final José Miguel Confirmed Date Final José Miguel Date Ultra Sound Latest Days Gestation 0 0 Menstrual History Last Menstrual Date Menses Monthly On Bcp Conception Prior Menses Frequency Hcg Plus Date Menarche Onset Age Delivery Information Delivery Date Delivery Type Labor Anesthesia Weeks Gestation Incision Type Labor Labor Length Hrs Delivered By Post Complications Tubal Sterilization Discharge Date Comments 7 40 Discharge Information Feeding Method Contraceptive Method Maternal HG B and HCT Levels Ob Episode Information Episode Created Date Number of Fetuses Patient Bloodtype Patient rh Status Prepregnancy Weight lbs Domestic Partner Domestic Partner Phone Father Name Theatrical Scenic Designer Status 11/19/19 22 1 CLOSED Fetus Data First Name Last Name Admitted to NICU Weight (g) Sex Living Outcome Pediatric Complications Fetus ID Race Codes Race Delivery Type , Spontane ous [id number] José Miguel Calculation Initial José Miguel Date Initial Exam Date Initial Exam Provider Initial Ultrasound Date Last Menstrual Period Date Ultra Sound Weeks Gestation 0 Eighteen To Twenty Week José Miguel Update Ultra Sound Date Fundal Height At Umbil Quickening Date Ultra Sound Latest Weeks Gestation Final José Miguel Confirmed By Final José Miguel Confirmed Date Final José Miguel Date Ultra Sound Latest Days Gestation 0 0 Menstrual History Last Menstrual Date Menses Monthly On Bcp Conception Prior Menses Frequency Hcg Plus Date Menarche Onset Age Delivery Information Delivery Date Delivery Type Labor Anesthesia Weeks Gestation Incision Type Labor Labor Length Hrs Delivered By Post Complications Tubal Sterilization Discharge Date Comments 4 Discharge Information Feeding Method Contraceptive Method Maternal HG B and HCT Levels
--- OUTSIDE RECORDS SUMMARY | 2025-02-26 16:39 | XMS_ITS | Referral Summary ---
Author Organization [facility] Address [address] [place] [address] Care Team Providers Care Directory Compiler Name Role Phone Cam Navarro MD Primary Care Provider Encounters Date Type Department Care Team Description 11/28/[address] 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 Take 1 tablet (125 mcg total) by mouth daily 90 tablet 11/28/2024 Active Active Problems Problem Noted Date Diagnosed Date Anxiety 12/15/2022 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 Overview (12/15/2022): Last Assessment & Plan: Condition: stable/asymptomatic Follow up in: three months with PCP Arthralgia of both hands 12/23/2021 Vitamin D deficiency 12/23/2021 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 Immunizations Immunization Administration Dates Next Due HPV9 10/17/2019 Kina (J&J) SARS-CoV-2 Vaccination 12/19/2020 Tdap 05/23/2018 Social History Tobacco Use Types Packs/Day Years Used Date Smoking Tobacco: Never Tobacco Cessation:Counseling Given: Not Answered Comments Unknown Sex and Gender Information Value Date Recorded Sex Assigned at Not on file Legal Sex Female 1:27 PM [employer] Gender Identity Not on file Sexual Orientation Not on file Last Filed Vital Signs [...] 12/22/2023 12:46 PM CDT Plan of Treatment Not on file Insurance Care Teams Directory Compiler Relationship Specialty Start Date End Date Cam Navarro MD PCP - General Obstetrics and Gynecology 07/04/19
--- OUTSIDE RECORDS SUMMARY | 2025-02-26 16:39 | XMS_ITS | Data Portability ---
[facility] Organization [facility] Address [address] [place] [address] Assessment No assessment recorded. Plan of Treatment Reminders Order Date Submit Date Provider Last Modified By Organization Details Last Modified Time Details Appointments ANY 15 2024 02:30P Olegario JACOB PA-C Not available Not available Not available Lab TSH + free T4, serum 2024 025 JULIOABBEY Jc, [address], [place], [address], 09/27/2024 08:25:14 T3, free, serum or plasma 2024 025 TARZAN Hosea, [address], [place], [address], 09/27/2024 08:25:16 hsv (1+2) igg, serum 2023 024 TARZAN Hosea, [address], [place], [address], 07/21/2024 17:08:57 HbA1c (hemogl obin A1c), blood 2023 024 JULIO Jc, [address], [place], [address], 07/21/2024 17:09:04 CBC w/ auto diff 2023 024 JULIO Jc, [address], [place], [address], 07/21/2024 17:09:05 RPR (rapid plasma reagin) , serum 2023 [facility], [address], [place], [address], 07/21/2024 17:09:07 HIV 1 + 2, meaning ful use set 2023 [facility], [address], [place], [address], 07/21/2024 17:09:09 chlamyd ia trachom atis + neisser ia gonorrh oeae + trichom onas vaginal is rRNA panel, ASHLEY+pro be 2023 TARZAN [facility], [address], [place], [address], 07/21/2024 17:08:58 lipid panel, serum 2023 [facility], [address], [place], [address], 07/21/2024 17:09:00 CMP, serum or plasma 2023 [facility], [address], [place], [address], 07/21/2024 17:09:01 TSH, ultra-s ensitiv e, serum 2023 [facility], [address], [place], [address], 07/21/2024 17:09:02 vitamin D, 25-hydr oxy, total, serum 2023 [facility], [address], [place], [address], 07/21/2024 17:09:08 noninva sive colorec kelly cancer DNA + occult blood screeni ng, QL, stool 2023 024 TARZAN [facility] (Cologuard Orders Only), [address], [address], [place], [address], 02/01/2025 11:37:47 Referral vascula r surgeon referra l 2023 024 [facility] Care Physician Referral Management, [facility], Vascular Testing - Scheduling, [place], [address], 04/12/2024 15:06:10 Procedures None recorde d. Surgeries None recorde d. Imaging US, pelvis, complet e 2024 025 [facility] (One Call Scheduling), [address], [place], [address], 02/14/2025 12:01:49 Medication Orders triamci nolone acetoni de 0.5 % topical cream 2024 025 [facility] #[id number], [address] , [place], [place], [id number], 11/07/2024 15:28:00 fluoxet ine 10 mg capsule 2024 025 [facility] #[id number], [address], [place], [place], [id number], 11/07/2024 15:27:59 [facility] 50 mg capsule 2024 025 [facility] #[id number], [address], [place], [place], [id number], 09/26/2024 14:34:40 fluoxet ine 10 mg capsule 2024 025 [id number], [address], [place], [place], [id number], 09/26/2024 14:34:39 valacyc lovir 1 gram tablet 2023 025 [facility] #[id number], [address], [place], [place], [id number], 09/26/2024 14:08:05 mupiroc in 2 % topical ointmen t 2023 024 [facility] #[id number], [address], [place], [place], [id number], 06/04/2024 17:43:26 Patient TargetsNo targets recorded. Patient Instructions Encounter Date Encounter Id Patient Instructions Last Modified By Organization Details Last Modified Time 02/02/2024 [id number] artritis en la rodilla: instrucciones de cuidado - [knee arthritis: care instructions] [email or web address] Not available 02/02/2024 16:25:49 V rices: instrucciones de cuidado - [varicose veins: care instructions] [email or web address] Not available 02/02/2024 16:20:40 aprenda acerca d el peso saludable - [learning about healthy weight] [email or web address] Not available 02/02/2024 16:26:50 06/04/2024 [id number] A healthy lifestyle: care instructions [email or web address] Not available 06/04/2024 17:43:18 07/02/2024 [id number] herpes labial: instrucciones de cuidado - [cold sores: care instructions] [email or web address] Not available 07/02/2024 17:22:55 A healthy lifestyle: care instructions [email or web address] Not available 07/02/2024 17:32:46 colesterol alto: instrucciones de cuidado - [high cholesterol: care instructions] [email or web address] Not available 07/02/2024 17:22:55 09/26/2024 [id number] A healthy lifestyle: care instructions [email or web address] Not available 09/26/2024 14:34:32 insomnio: instrucciones de cuidado - [insomnia: care instructions] [email or web address] Not available 09/26/2024 14:34:32 11/07/2024 [id number] A healthy lifestyle: care instructions [email or web address] Not available 11/07/2024 15:27:55 posible apendicitis: instrucciones de cuidado - [possible appendicitis: care instructions] [email or web address] Not available 11/07/2024 15:27:56 dermatitis: instrucciones de cuidado - [dermatitis: care instructions] [email or web address] Not available 11/07/2024 15:27:56 Reason for Referral Vascular Surgeon Referral fo r Varicose veins of lower extremity Referring Physician: Mark Jacob, Family Medicine, Encounter Date: 02/02/2024 Results Created Date Observation Date Name Description Value Unit Range Abnormal Flag Note LastModifiedBy Organization Detail LastModifiedTime 02/01/2001/31/2025 COLOG UARD cologuard result Cancel led - Duplic ate Order not applic able Not Available [facility] (Cologuard Orders Only) [address], [place], [address], 01/31/2025 14:56:05 07/20/20 24 07/21/2024 SPECI MEN STATU S REPOR T specimen status report TNP Test not perfo rmed. Patie nt was unabl e to provi de a self- colle cted speci men for the reque sted testi ng. The follo wing test( s) were not perfo rmed: TEST: [id number] Ct, Ng, Trich vag by ASHLEY Not Available [facility] ([facility]) [address] [facility], [place], [address], 07/21/2024 17:08:56 07/20/20 24 07/21/2024 HSV 1 AND 2 AB, IGG hsv 1 IgG, type spec REACTI VE nonrea ctive abnormal Ple ase note refer ence inter brennon friend e HSV-1 IgG testi ng perfo rmed using the [employer] HSV-1 IgG assay . Not Available [facility] ([facility]) [address] [facility], [place], [address], 07/21/2024 17:08:57 07/20/20 24 07/21/2024 HSV 1 AND 2 AB, IGG hsv 2 IgG, type spec NON REACTI VE nonrea ctive Ple ase note refer ence inter brennon friend e Curre nt guide lines and recom menda tions do not recom mend routi ne scree nicola for HSV-2 in asymp tomat ic indiv idual s, inclu ding those that are pregn ant. The detec tion of HSV-2 IgG antib odies in a singl e sampl e indic ates previ ous expos ure to HSV-2 but does not give infor matio n as to the site of HSV infec tion or the timin g of expos ure. The predi ctive value of posit meredith and negat meredith resul ts depen ds on the popul ation 's preva lence and the prete st likel ihood of HSV-2 . HSV-2 IgG testi ng perfo rmed using the [employer] HSV-2 IgG assay . Not Available [facility] ([facility]) [address] [place], [address], 07/21/2024 17:08:57 07/20/2007/21/2024 CT, NG, TRICH VAG BY ASHLEY chlamydia by ASHLEY - Test not perfo rmed. Patie nt was unabl e to provi de a self- colle cted speci men for the reque sted testi ng. The follo wing test( s) were not perfo rmed: Not Available [facility] ([facility]) [address] [place], [address], 07/21/2024 17:08:58 07/20/20 24 07/21/2024 CT, NG, TRICH VAG BY ASHLEY gonococcus by ASHLEY - Test not perfo rmed Not Available [facility] ([facility]) [address] [place], [address], 07/21/2024 17:08:58 07/20/20 24 07/21/2024 CT, NG, TRICH VAG BY ASHLEY trich vag by ASHLEY - Test not perfo rmed Not Available [facility] ([facility]) [address] [place], [address], 07/21/2024 17:08:58 07/20/20 24 07/21/2024 LIPID PANEL cholesterol, total 263 mg/dL 100-19 9 above high normal Not Available [facility] ([facility]) [address] [place], [address], 07/21/2024 17:09:00 07/20/20 24 07/21/2024 LIPID PANEL triglyceride s 114 mg/dL 0-149 Not Available [facility] ([facility]) [address] [place], [address], 07/21/2024 17:09:00 07/20/20 24 07/21/2024 LIPID PANEL HDL cholesterol 51 mg/dL >39 Not Available [facility] ([facility]) [address] [place], [address], 07/21/2024 17:09:00 07/20/20 24 07/21/2024 LIPID PANEL VLDL cholesterol feliciano 20 mg/dL 5-40 Not Available [facility] ([facility]) [address] [place], [address], 07/21/2024 17:09:00 07/20/20 24 07/21/2024 LIPID PANEL LDL chol calc ([facility]) 192 mg/dL 0-99 above high normal Not Available [facility] ([facility]) [address] [place], [address], 07/21/2024 17:09:00 07/20/20 24 07/21/2024 LIPID PANEL LDL calc comment: COMMEN T Consi kaz evalu ating for Famil ial Hyper enoch stero lemia (FH), if clini hung indic ated. Not Available [facility] ([facility]) [address] [place], [address], 07/21/2024 17:09:00 07/20/20 24 07/21/2024 COMP. METAB OLIC PANEL (14) glucose 93 mg/dL 70-99 Not Available [facility] ([facility]) [address] [facility], [place], [address], 07/21/2024 17:09:01 07/20/20 24 07/21/2024 COMP. METAB OLIC PANEL (14) BUN 11 mg/dL 6-24 Not Available [facility] ([facility]) [address] [place], [address], 07/21/2024 17:09:01 07/20/20 24 07/21/2024 COMP. METAB OLIC PANEL (14) creatinine 0.73 mg/dL 0.57-1 .00 Not Available [facility] ([facility]) [address] [place], [address], 07/21/2024 17:09:01 07/20/20 24 07/21/2024 COMP. METAB OLIC PANEL (14) eGFR 102 mL/mi n/1.7 3 >59 Not Available [facility] ([facility]) [address] [place], [address], 07/21/2024 17:09:01 07/20/20 24 07/21/2024 COMP. METAB OLIC PANEL (14) BUN/creatini ne ratio 15 9-23 Not Available [facility] ([facility]) [address] [place], [address], 07/21/2024 17:09:01 07/20/20 24 07/21/2024 COMP. METAB OLIC PANEL (14) sodium 141 mmol/ L 134-14 4 Not Available [facility] ([facility]) [address] [place], [address], 07/21/2024 17:09:01 07/20/20 24 07/21/2024 COMP. METAB OLIC PANEL (14) potassium 4.3 mmol/ L 3.5-5. 2 Not Available [facility] ([facility]) [address] [place], [address], 07/21/2024 17:09:01 07/20/20 24 07/21/2024 COMP. METAB OLIC PANEL (14) chloride 104 mmol/ L 96-106 Not Available [facility] ([facility]) [address] [facility] [place], [address], 07/21/2024 17:09:01 07/20/20 24 07/21/2024 COMP. METAB OLIC PANEL (14) carbon dioxide, total 23 mmol/ L 20-29 Not Available [facility] ([facility]) [address] [facility], [place], [address], 07/21/2024 17:09:01 07/20/20 24 07/21/2024 COMP. METAB OLIC PANEL (14) calcium 9.3 mg/dL 8.7-10 .2 Not Available [facility] ([facility]) [address] [facility], [place], [address], 07/21/2024 17:09:01 07/20/20 24 07/21/2024 COMP. METAB OLIC PANEL (14) protein, total 6.7 g/dL 6.0-8. 5 Not Available [facility] ([facility]) [address] [facility], [place], [address], 07/21/2024 17:09:01 07/20/20 24 07/21/2024 COMP. METAB OLIC PANEL (14) albumin 4.3 g/dL 3.9-4. 9 Not Available [facility] ([facility]) [address] [facility] [place], [address], 07/21/2024 17:09:01 07/20/20 24 07/21/2024 COMP. METAB OLIC PANEL (14) globulin, total 2.4 g/dL 1.5-4. 5 Not Available [facility] ([facility]) [address] [facility] [place], [address], 07/21/2024 17:09:01 07/20/20 24 07/21/2024 COMP. METAB OLIC PANEL (14) bilirubin, total 0.5 mg/dL 0.0-1. 2 Not Available [facility] ([facility]) [address] [facility] [place], [address], 07/21/2024 17:09:01 07/20/20 24 07/21/2024 COMP. METAB OLIC PANEL (14) alkaline phosphatase 79 IU/L 44-121 Not Available [facility] ([facility]) [address] [facility] [place], [address], 07/21/2024 17:09:01 07/20/20 24 07/21/2024 COMP. METAB OLIC PANEL (14) AST (SGOT) 21 IU/L 0-40 Not Available [facility] ([facility]) [address] [facility] [place], [address], 07/21/2024 17:09:01 07/20/20 24 07/21/2024 COMP. METAB OLIC PANEL (14) ALT (SGPT) 16 IU/L 0-32 Not Available [facility] ([facility]) [address] [facility] [place], [address], 07/21/2024 17:09:01 07/20/20 24 07/21/2024 TSH RFX ON ABNOR MAL TO FREE T4 TSH 0.917 uIU/m L 0.450- 4.500 Not Available [facility] ([facility]) [address] [facility] [place], [address], 07/21/2024 17:09:02 07/20/20 24 07/20/2024 UNABL E TO VOID unable to void Commen t Patie nt unabl e to void. Urine to be colle cted at a later date. Not Available [facility] ([facility]) [address] [facility], [place], [address], 07/21/2024 17:09:03 07/20/2007/21/2024 HEMOG LOBIN A1C hemoglobin A1C 5.7 % 4.8-5. 6 above high normal Predi abete s: 5.7 - 6.4 Diabe meliton: >6.4 Glyce magdalene contr ol for adult s with diabe meliton: <7.0 Not Available [facility] ([facility]) [address] [facility], [place], [address], 07/21/2024 17:09:04 07/20/2007/21/2024 CBC WITH DIFFE RENTI AL/PL ATELE T WBC 5.1 x10e3 /uL 3.4-10 .8 Not Available [facility] ([facility]) [address] [facility], [place], [address], 07/21/2024 17:09:05 07/20/20 24 07/21/2024 CBC WITH DIFFE RENTI AL/PL ATELE T RBC 4.37 x10e6 /uL 3.77-5 .28 Not Available [facility] ([facility]) [address] [facility], [place], [address], 07/21/2024 17:09:05 07/20/20 24 07/21/2024 CBC WITH DIFFE RENTI AL/PL ATELE T hemoglobin 12.9 g/dL 11.1-1 5.9 Not Available [facility] ([facility]) [address] [facility], [place], [address], 07/21/2024 17:09:05 07/20/20 24 07/21/2024 CBC WITH DIFFE RENTI AL/PL ATELE T hematocrit 40.3 % 34.0-4 6.6 Not Available [facility] ([facility]) [address] [facility], [place], [address], 07/21/2024 17:09:05 07/20/20 24 07/21/2024 CBC WITH DIFFE RENTI AL/PL ATELE T MCV 92 fL 79-97 Not Available [facility] ([facility]) [address] [facility], [place], [address], 07/21/2024 17:09:05 07/20/20 24 07/21/2024 CBC WITH DIFFE RENTI AL/PL ATELE T MCH 29.5 pg 26.6-3 3.0 Not Available [facility] ([facility]) [address] [facility], [place], [address], 07/21/2024 17:09:05 07/20/20 24 07/21/2024 CBC WITH DIFFE RENTI AL/PL ATELE T MCHC 32.0 g/dL 31.5-3 5.7 Not Available [facility] ([facility]) [address] [place], [address], 07/21/2024 17:09:05 07/20/20 24 07/21/2024 CBC WITH DIFFE RENTI AL/PL ATELE T RDW 14.0 % 11.7-1 5.4 Not Available [facility] ([facility]) [address] [facility], [place], [address], 07/21/2024 17:09:05 07/20/20 24 07/21/2024 CBC WITH DIFFE RENTI AL/PL ATELE T platelets 229 x10e3 /uL 150-45 0 Not Available [facility] ([facility]) [address] [place], [address], 07/21/2024 17:09:05 07/20/20 24 07/21/2024 CBC WITH DIFFE RENTI AL/PL ATELE T neutrophils 68 % notest ab. Not Available [facility] ([facility]) [address] [place], [address], 07/21/2024 17:09:05 07/20/20 24 07/21/2024 CBC WITH DIFFE RENTI AL/PL ATELE T lymphs 23 % notest ab. Not Available [facility] ([facility]) [address] [facility], [place], [address], 07/21/2024 17:09:05 07/20/20 24 07/21/2024 CBC WITH DIFFE RENTI AL/PL ATELE T monocytes 7 % notest ab. Not Available [facility] ([facility]) [address] [facility], [place], [address], 07/21/2024 17:09:05 07/20/20 24 07/21/2024 CBC WITH DIFFE RENTI AL/PL ATELE T eos 1 % notest ab. Not Available [facility] ([facility]) [address] [facility], [place], [address], 07/21/2024 17:09:05 07/20/20 24 07/21/2024 CBC WITH DIFFE RENTI AL/PL ATELE T basos 1 % notest ab. Not Available [facility] ([facility]) [address] [facility], [place], [address], 07/21/2024 17:09:05 07/20/20 24 07/21/2024 CBC WITH DIFFE RENTI AL/PL ATELE T neutrophils (absolute) 3.5 x10e3 /uL 1.4-7. 0 Not Available [facility] ([facility]) [address] [facility], [place], [address], 07/21/2024 17:09:05 07/20/20 24 07/21/2024 CBC WITH DIFFE RENTI AL/PL ATELE T lymphs (absolute) 1.2 x10e3 /uL 0.7-3. 1 Not Available [facility] ([facility]) [address] [facility], [place], [address], 07/21/2024 17:09:05 07/20/20 24 07/21/2024 CBC WITH DIFFE RENTI AL/PL ATELE T monocytes(ab solute) 0.3 x10e3 /uL 0.1-0. 9 Not Available [facility] ([facility]) [address] [facility], [place], [address], 07/21/2024 17:09:05 07/20/20 24 07/21/2024 CBC WITH DIFFE RENTI AL/PL ATELE T eos (absolute) 0.1 x10e3 /uL 0.0-0. 4 Not Available [facility] ([facility]) [address] [facility], [place], [address], 07/21/2024 17:09:05 07/20/20 24 07/21/2024 CBC WITH DIFFE RENTI AL/PL ATELE T baso (absolute) 0.0 x10e3 /uL 0.0-0. 2 Not Available [facility] ([facility]) [address] [facility], [place], [address], 07/21/2024 17:09:05 07/20/20 24 07/21/2024 CBC WITH DIFFE RENTI AL/PL ATELE T immature granulocytes 0 % notest ab. Not Available [facility] ([facility]) [address] [facility], [place], [address], 07/21/2024 17:09:05 07/20/20 24 07/21/2024 CBC WITH DIFFE RENTI AL/PL ATELE T immature grans (abs) 0.0 x10e3 /uL 0.0-0. 1 Not Available [facility] ([facility]) [address] [facility], [place], [address], 07/21/2024 17:09:05 07/20/20 24 07/21/2024 RPR, RFX QN RPR/C ONFIR M TP RPR NON REACTI VE nonrea ctive Not Available [facility] ([facility]) [address] [facility], [place], [address], 07/21/2024 17:09:06 07/20/20 24 07/21/2024 VITAM IN D, 25-HY DROXY vitamin D, 25-hydroxy 23.5 NG/mL 30.0-1 00.0 below low normal Vitam in D defic iency has been defin ed by the Insti tute of Medic ine and an Endoc rine Socie ty pract ice guide line as a level of serum 25-OH vitam in D less than 20 ng/mL (1,2) . The Endoc rine Socie ty went on to furth er defin e vitam in D insuf ficie ncy as a level betwe en 21 and 29 ng/mL (2). 1. IOM (Inst itute of Medic ine). 2010. Dieta ry refer ence waldemar es for calci um and D. Elisa sparks [place]: [facility] . 2. Vida ramirez MF, Carin estrella [place], Lydia off-F errar i MANCUSO, et al. Evalu ation , treat ment, and preve ntion of vitam in D defic iency : an Endoc rine Socie ty clini feliciano pract ice guide line. JCEM. 2010; 96(7) :1911 -30. Not Available [facility] ([facility]) [address] [facility], [place], [address], 07/21/2024 17:09:08 07/20/20 24 07/21/2024 HIV AB/P2 4 AG WITH REFLE X HIV Ab/P24 Ag screen NON REACTI VE nonrea ctive HIV-1 /HIV- 2 antib odies and HIV-1 p24 antig en were NOT detec karina. There is no labor atory evide nce of HIV infec tion. HIV Negat meredith Not Available [facility] ([facility]) [address] [facility], [place], [address], 07/21/2024 17:09:09 09/26/19 25 09/27/2024 TSH+F REE T4 TSH 0.664 uIU/m L 0.450- 4.500 Not Available [facility] ([facility]) [address] [facility], [place], [address], 09/27/2024 08:25:14 09/26/19 25 09/27/2024 TSH+F REE T4 T4,free(dire ct) 1.76 NG/dL 0.82-1 .77 Not Available [facility] ([facility]) [address] [place], [address], 09/27/2024 08:25:14 09/26/19 25 09/27/2024 TRIIO DOTHY JARAD E (T3), FREE triiodothyro nine (T3), free 3.0 pg/mL 2.0-4. 4 Not Available [facility] ([facility]) [address] [facility], [place], [address], 09/27/2024 08:25:15 10/08/19 25 10/08/2024 Testo stero ne Free/ Testo stero ne.to kelly in Serum or Plasm a testosterone , total text: 2-45 testo stero ne, total Not Available Not Available 01/03/2025 16:58:48 10/08/19 25 10/08/2024 Testo stero ne Free/ Testo stero ne.to kelly in Serum or Plasm a testosterone , free text: 0.1-6. 4 testo stero ne, free Not Available Not Available 01/03/2025 16:58:48 10/08/19 25 10/08/2024 Prola ctin [Mass /volu me] in Serum or Plasm a prolactin, total text: 4.79-2 3.30 prola ctin, total Not Available Not Available 01/03/2025 16:58:48 10/08/19 25 10/08/2024 Proge stero ne [Mass /volu me] in Serum or Plasm a progesterone proge stero ne Not Available Not Available 01/03/2025 16:58:48 01/04/20 25 01/04/2025 CT, NG, TRICH VAG BY ASHLEY chlamydia by ASHLEY - Test not perfo rmed Not Available [facility] ([facility]) [address] [facility], [place], [address], 01/04/2025 15:21:26 01/04/20 25 01/04/2025 CT, NG, TRICH VAG BY ASHLEY gonococcus by ASHLEY - Test not perfo rmed Not Available [facility] ([facility]) [address] [place], [address], 01/04/2025 15:21:26 01/04/20 25 01/04/2025 CT, NG, TRICH VAG BY ASHLEY trich vag by ASHLEY - Test not perfo rmed. No Aptim a trans port recei beni. Not Available [facility] ([facility]) [address] [place], [address], 01/04/2025 15:21:26 01/04/20 25 01/04/2025 LIPID PANEL cholesterol, total 242 mg/dL 100-19 9 above high normal Not Available [facility] ([facility]) [address] [place], [address], 01/04/2025 15:21:28 01/04/20 25 01/04/2025 LIPID PANEL triglyceride s 100 mg/dL 0-149 Not Available [facility] ([facility]) [address] [place], [address], 01/04/2025 15:21:28 01/04/20 25 01/04/2025 LIPID PANEL HDL cholesterol 52 mg/dL >39 Not Available [facility] ([facility]) [address] [place], [address], 01/04/2025 15:21:28 01/04/20 25 01/04/2025 LIPID PANEL VLDL cholesterol feliciano 18 mg/dL 5-40 Not Available [facility] ([facility]) [address] [place], [address], 01/04/2025 15:21:28 01/04/20 25 01/04/2025 LIPID PANEL LDL chol calc ([facility]) 172 mg/dL 0-99 above high normal Not Available [facility] ([facility]) [address] [facility], [place], [address], 01/04/2025 15:21:28 01/04/20 25 01/04/2025 COMP. METAB OLIC PANEL (14) glucose 91 mg/dL 70-99 Not Available [facility] ([facility]) [address] [facility], [place], [address], 01/04/2025 15:21:29 01/04/20 25 01/04/2025 COMP. METAB OLIC PANEL (14) BUN 12 mg/dL 6-24 Not Available [facility] ([facility]) [address] [facility] [place], [address], 01/04/2025 15:21:29 01/04/20 25 01/04/2025 COMP. METAB OLIC PANEL (14) creatinine 0.69 mg/dL 0.57-1 .00 Not Available [facility] ([facility]) [address] [facility], [place], [address], 01/04/2025 15:21:29 01/04/20 25 01/04/2025 COMP. METAB OLIC PANEL (14) eGFR 108 mL/mi n/1.7 3 >59 Not Available [facility] ([facility]) [address] [place], [address], 01/04/2025 15:21:29 01/04/20 25 01/04/2025 COMP. METAB OLIC PANEL (14) BUN/creatini ne ratio 17 9-23 Not Available [facility] ([facility]) [address] [place], [address], 01/04/2025 15:21:29 01/04/20 25 01/04/2025 COMP. METAB OLIC PANEL (14) sodium 140 mmol/ L 134-14 4 Not Available [facility] ([facility]) [address] [place], [address], 01/04/2025 15:21:29 01/04/20 25 01/04/2025 COMP. METAB OLIC PANEL (14) potassium 4.3 mmol/ L 3.5-5. 2 Not Available [facility] ([facility]) [address] [place], [address], 01/04/2025 15:21:29 01/04/20 25 01/04/2025 COMP. METAB OLIC PANEL (14) chloride 104 mmol/ L 96-106 Not Available [facility] ([facility]) [address] [place], [address], 01/04/2025 15:21:29 01/04/20 25 01/04/2025 COMP. METAB OLIC PANEL (14) carbon dioxide, total 24 mmol/ L 20- Not Available [facility] ([facility]) [address] [place], [address], 01/04/2025 15:21:29 01/04/20 25 01/04/2025 COMP. METAB OLIC PANEL (14) calcium 9.1 mg/dL 8.7-10 .2 Not Available [facility] ([facility]) [address] [place], [address], 01/04/2025 15:21:29 01/04/20 25 01/04/2025 COMP. METAB OLIC PANEL (14) protein, total 6.6 g/dL 6.0-8. 5 Not Available [facility] ([facility]) [address] [place], [address], 01/04/2025 15:21:29 01/04/20 25 01/04/2025 COMP. METAB OLIC PANEL (14) albumin 4.2 g/dL 3.9-4. 9 Not Available [facility] ([facility]) [address] [place], [address], 01/04/2025 15:21:29 01/04/20 25 01/04/2025 COMP. METAB OLIC PANEL (14) globulin, total 2.4 g/dL 1.5-4. 5 Not Available [facility] ([facility]) [address] [place], [address], 01/04/2025 15:21:29 01/04/20 25 01/04/2025 COMP. METAB OLIC PANEL (14) bilirubin, total 0.4 mg/dL 0.0-1. 2 Not Available [facility] ([facility]) [address] [place], [address], 01/04/2025 15:21:29 01/04/20 25 01/04/2025 COMP. METAB OLIC PANEL (14) alkaline phosphatase 86 IU/L 44-121 Not Available [facility] ([facility]) [address] [place], [address], 01/04/2025 15:21:29 01/04/20 25 01/04/2025 COMP. METAB OLIC PANEL (14) AST (SGOT) 19 IU/L 0-40 Not Available [facility] ([facility]) [address] [place], [address], 01/04/2025 15:21:29 01/04/20 25 01/04/2025 COMP. METAB OLIC PANEL (14) ALT (SGPT) 14 IU/L 0-32 Not Available [facility] ([facility]) [address] [place], [address], 01/04/2025 15:21:29 01/04/20 25 01/03/2025 UNABL E TO VOID unable to void Commen t Patie nt unabl e to void. Urine to be colle cted at a later date. Not Available [facility] ([facility]) [address] [place], [address], 01/04/2025 15:21:31 01/04/20 25 01/04/2025 HEMOG LOBIN A1C hemoglobin A1C 5.7 % 4.8-5. 6 above high normal Predi abete s: 5.7 - 6.4 Diabe meliton: >6.4 Glyce magdalene contr ol for adult s with diabe meliton: <7.0 Not Available [facility] ([facility]) [address] [facility], [place], [address], 01/04/2025 15:21:32 01/04/20 25 01/04/2025 RPR, RFX QN RPR/C ONFIR M TP RPR NON REACTI VE nonrea ctive Not Available [facility] ([facility]) [address] [facility], [place], [address], 01/04/2025 15:21:33 01/04/20 25 01/04/2025 VITAM IN D, 25-HY DROXY vitamin D, 25-hydroxy 24.7 NG/mL 30.0-1 00.0 below low normal Vitam in D defic iency has been defin ed by the Insti tute of Medic ine and an Endoc rine Socie ty pract ice guide line as a level of serum 25-OH vitam in D less than 20 ng/mL (1,2) . The Endoc rine Socie ty went on to furth er defin e vitam in D insuf ficie ncy as a level betwe en 21 and 29 ng/mL (2). 1. IOM (Inst itute of Medic ine). 2009. Dieta ry refer ence intak es for calci um and D. Elisa sparks [place]: [facility] . 2. Vida ramirez MF, Carin estrella [place], Lydia off-F errar i MANCUSO, et al. Evalu ation , treat ment, and preve ntion of vitam in D defic iency : an Endoc rine Socie ty clini felician[place] pract ice guide line. JCEM. 2010; 96(7) :1911 -30. Not Available [facility] ([facility]) [address] [facility], [place], [address], 01/04/2025 15:21:34 04/24/20 25 01/04/2025 HIV AB/P2 4 AG WITH REFLE X HIV Ab/P24 Ag screen NON REACTI VE nonrea ctive HIV-1 /HIV- 2 antib odies and HIV-1 p24 antig en were NOT detec karina. There is no labor atory evide nce of HIV infec tion. HIV Negat meredith Not Available [facility] ([facility]) [address] [facility], [place], [address], 01/04/2025 15:21:35 01/03/20 24 12/29/2023 XR, knee, 3 view No observ ation record ed. [email or web address] [facility] [address] [place], [address], 02/02/2024 16:26:18 Result Notes None recorded. Problems Name Problem SNOMED Code Status Onset Date Resolution Date Notes Provider Name and Address Organization Details Recorded Time 33313730 Completed 201701/05/2018 Cam kunz [place] - [facility] 8 15:17:53 Depressiv e disorder 83483452 Completed 2017 Cam kunz [place] [facility] 9 17:02:39 Depressiv e disorder 95378171 Active 2017 Cam Melaniecastillo kunz [place] - [facility] 9 17:02:39 Group B Streptoco ccus carrier 814409272290 3 Completed 2016 Cam kunz [place] [facility] 9 17:02:39 HPV - Human papilloma virus test positive Completed 2016 Cam Melaniecast[place] - [facility] 9 17:02:39 Hypothyro idism 92863146 Completed Cam Melaniecastillo [place] [facility] 9 17:02:39 Advanced maternal age 406668761 Completed 2017 Cam [place]aniecast[place] [facility] 9 17:02:38 Advanced maternal age 092787563 Active 2017 Cam [place]z [place] [facility] 9 17:02:39 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 085419191020 109 Completed 2017 Cam Navarro [place] - [facility] 9 17:02:39 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 985806879536 109 Active 2017 Cam [place] [facility] 9 17:02:39 Recurrent miscarria ge 509150636 Completed 2017 Cam [place] [facility] 9 17:02:39 Recurrent miscarria ge 322804346 Active 2017 Cam [place] [facility] 9 17:02:39 Female steriliza tion Completed 2017 [place] [facility] 9 17:02:39 Female steriliza tion Active 2017 [place] [facility] 9 17:02:39 Small for gestation al age fetus 845600957 Completed 2017 [place] [facility] 9 17:02:39 Small for gestation al age fetus 716988461 Active 2017 [place] [facility] 9 17:02:39 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 85589747 Active 2020 Cam [place] [facility] 1 06:35:08 Venereal disease screening Active 2021 Mohan Castillo MD Attn: Lauren forrest,[address] [place], [address], [place] [facility] 2 15:46:50 Arthritis of knee 175821542 Active 2023 MARK JACOB PA-C Attn: Lauren forrest,[address] [place], [address], [place] [facility] 4 11:18:52 Herpes labialis 1020349 Active 2023 MARK JACOB PA-C Attn: Lauren forrest,[address] [place], [address], [place] [facility] 4 16:22:19 Prediabet es 754582534 Active 2023 MARK JACOB PA-C Attn: Accountin g,[address] [facility], [place], [address], [place] [facility] 5 09:15:07 Vitamin D deficienc y 61318951 Active 2023 MARK JACOB PA-C Attn: Accountin g,[address] [facility], [place], [address], [place] [facility] 4 16:22:00 Herpes simplex 91274035 Active 2023 MARK JACOB PA-C Attn: Accountin g,[address] [facility], [place], [address], [place] [facility] 4 16:22:12 Hypothyro idism 53115922 Active Cam kunz[place] - [facility] 9 17:02:39 Hyperlipi demia 89554488 Active MARK JACOB PA-C Attn: Accountjoon g,[address] [facility], [place], [address], [place] [facility] 5 09:15:01 Perimenop [facility] [id number] 104 Completed 201601/05/2018 [place] [facility] 8 15:17:58 Atrophic vaginitis 83045800 Active 2016 Cam [place] [facility] 7 10:16:25 Candidias is of vagina 65106822 Active 2016 [place] [facility] 7 12:47:40 Dyspareun ia 87799938 Active 2016 Cam [place] [facility] 7 12:48:10 Group B Streptoco ccus carrier 703073261097 3 Active 2016 Cam [place] - [facility] 9 17:02:39 HPV - Human papilloma virus test positive Active 2016 Cam kunz, [place] - [facility] 9 17:02:39 Problem Notes None recorded. Procedures Surgical History Date Name Laterality Status Provider Name and Address Organization Details Recorded Time 1 Date of Last Mammogram completed Nika Capellan [place] - [facility] 03/09/2023 14:55:47 1 Date of Last Pap Smear completed Nika Capellan [place] - [facility] 02/16/2021 15:26:07 9 IUD Removal completed Cam Navarro [facility] 12/08/2018 11:10:23 9 IUD Insertion completed Malissa Pagan [place] - [facility] 10/10/2018 17:39:14 8 Colposcopy completed aCm Navarro [facility] 09/19/2017 11:19:41 7 Colposcopy completed Hortencia Barger MD Attn: Accounting,[address] [place], [address], [facility] - [facility] 10/08/2016 09:52:12 Imaging Results None recorded. Procedure Notes None recorded. Medical Equipment None Reported. Allergies Allergen ID Allergen Name Allergen Category Reaction Reaction Severity Criticality Documentation Date Start Date Code Code System Note Provider Name and Address Organization Details Recorded Time 669614 latex environme nt,medica tion Not available Not available Not available 07/31/2018 10066 91 RxNorm KANNAN [place], [place] - [facility] 2 14:28:03 Medications Name Sig Start Date Stop Date Status Note LastModified by Organization Details LastModified Time Prescriptio n - Prior Authorizati on Request active Not Available Not Available N ot Available multivitami n tablet Take 1 tablet every day by oral route. 02/16 completed Not Available Not Available Not Available cyclobenzap rine 10 mg tablet 08/08 completed Not Available Not Available Not Available Mirena 21 mcg/24 hr (up to 8 years) 52 mg intrauterin e device Take 1 device by intrauter ine route. 04/05 completed Not Available Not Available Not Available Unisom SleepGels 50 mg capsule Take 1 capsule every day by oral route at bedtime for 30 days. 2024 active Not Available Not Available Not Avai lable ketoconazol e 2 % shampoo Apply to affected area, lather, leave in for 5 minutes, then rinse off. Use twice weekly for 1 month 2022 active Not Available Not Available Not Avai lable clindamycin HCl 300 mg capsule TAKE 1 CAPSULE BY MOUTH EVERY 6 HOURS FOR 7 DAYS 09/26 completed Not Available Not Available Not Available triamcinolo ne acetonide 0.5 % topical cream APPLY THIN LAYER TOPICALLY TO THE AFFECTED AREA TWICE DAILY active Not Available Not Available No t Available azithromyci n 250 mg tablet TAKE 2 TABLETS (500 MG) BY ORAL ROUTE ONCE DAILY FOR 1 DAY THEN 1 TABLET (250 MG) BY ORAL ROUTE ONCE DAILY FOR 4 DAYS 10/17 completed Not Available Not Available Not Available ibuprofen 800 mg tablet TAKE 1 TABLET BY MOUTH EVERY 6 TO 8 HOURS. TAKE WITH FOOD NEEDED FOR PAIN/INFL AMMATION 08/24 completed Not Available Not Available Not Available fluconazole 150 mg tablet TAKE 1 TABLET BY MOUTH NOW. REPEAT IN 72 HOURS NEEDED active Not Available Not Available No t Available valacyclovi r 1 gram tablet TAKE 1 TABLET BY MOUTH EVERY 12 HOURS FOR 1 DAY 09/26 completed Not Available Not Available Not Available ranitidine 300 mg tablet Take 1 tablet every day by oral route at bedtime. 07/31 completed Not Available Not Available Not Available metronidazo le 0.75 % (37.5 mg/5 gram) vaginal gel INSERT 1 APPLICATO RFUL VAGINALLY EVERY DAY AT BEDTIME FOR 5 DAYS 01/18 completed Not Available Not Available Not Available Synthroid 125 mcg tablet Take 1 tablet every day by oral route for 90 days. active Not Available Not Available No t Available sertraline 100 mg tablet Take 1 tablet every day by oral route. 07/31 completed Not Available Not Available Not Available terconazole 0.8 % vaginal cream INSERT 1 APPLICATO RFUL VAGINALLY AT BEDTIME FOR 3 NIGHTS active Not Available Not Available No t Available penicillin V potassium 500 mg tablet TK 1 T PO BID FOR 10 DAYS 12/29 completed Not Available Not Available Not Available metronidazo le 500 mg tablet TAKE 1 TABLET BY MOUTH TWICE DAILY 01/18 completed Not Available Not Available Not Available prochlorper azine maleate 10 mg tablet 07/24 completed Not Available Not Available Not Available ciprofloxac in 500 mg tablet TAKE 1 TABLET BY MOUTH EVERY 12 HOURS active Not Available Not Available No t Available Reglan 10 mg tablet Take 1 tablet 4 times a day by oral route. 04/27 completed Not Available Not Available Not Available Condoms-Pre m Lubricated Take 1 device by miscell. route. 01/18 completed Not Available Not Available Not Available triamcinolo ne acetonide 0.1 % topical cream APPLY A THIN LAYER TO THE AFFECTED AREA(S) BY TOPICAL ROUTE 2 TIMES PER DAY 05/09 completed Not Available Not Available Not Available acyclovir 800 mg tablet TAKE 1 TABLET BY MOUTH EVERY DAY active Not Available Not Available No t Available Vitamin tablet Take 1 tablet every day by oral route as directed for 90 days. 12/29 completed Not Available Not Available Not Available meloxicam 7.5 mg tablet TAKE 1 TABLET BY MOUTH EVERY DAY FOR 14 DAYS FOR PAIN active Not Available Not Available No t Available levothyroxi ne 100 mcg tablet Take 1 tablet every day by oral route. 12/29 completed Not Available Not Available Not Available famotidine 20 mg tablet Take 1 tablet twice a day by oral route. 07/31 completed Not Available Not Available Not Available estradiol 1 mg tablet TAKE 1 TABLET BY MOUTH EVERY DAY 08/24 completed Not Available Not Available Not Available meclizine 25 mg tablet Take 1 tablet 3 times a day by oral route for 10 days. 05/09 completed Not Available Not Available Not Available benzonatate 100 mg capsule TAKE 1 CAPSULE BY MOUTH THREE TIMES DAILY FOR 7 DAYS NEEDED 09/26 completed Not Available Not Available Not Available cephalexin 500 mg capsule TAKE 1 CAPSULE BY MOUTH TWICE DAILY active Not Available Not Available No t Available cyanocobala min (vit B-12) 1,000 mcg/mL injection solution Inject 1 mL every month by intramusc ular route. 09/19 completed Not Available Not Available Not Available triamcinolo ne acetonide 0.1 % topical ointment APPLY THIN LAYER TOPICALLY TO THE AFFECTED AREA TWICE DAILY 11/07 completed Not Available Not Available Not Available nystatin 100,000 unit/gram topical cream APPLY TOPICALLY TO THE AFFECTED AREA TWICE DAILY 06/10 completed Not Available Not Available Not Available progesteron e micronized 200 mg capsule TAKE 1 CAPSULE BY MOUTH EVERY DAY FOR 12 DAYS 08/24 completed Not Available Not Available Not Available fluoxetine 10 mg capsule TAKE 1 CAPSULE BY MOUTH EVERY DAY active Not Available Not Available No t Available folic acid 1 mg tablet Take 4 tablets every day by oral route for 30 days. 12/29 completed Not Available Not Available Not Available hydrocortis one 2.5 % topical cream APPLY THIN LAYER TOPICALLY TO THE AFFECTED AREA TWICE DAILY 09/20 completed Not Available Not Available Not Available Mederma topical gel Apply 1 applicati on every day by topical route for 30 days. 2023 active Not Available Not Available Not Avai lable mupirocin 2 % topical ointment APPLY SMALL AMOUNT TOPICALLY TO THE AFFECTED AREA TWICE DAILY FOR 7 DAYS active Not Available Not Available No t Available ergocalcife rol (vitamin D2) 1,250 mcg (50,000 unit) capsule TAKE 1 CAPSULE BY MOUTH EVERY WEEK 09/20 completed Not Available Not Available Not Available ketoconazol e 2 % topical cream APPLY TOPICALLY TO THE AFFECTED AREA EVERY DAY 12/07 completed Not Available Not Available Not Available ondansetron 4 mg disintegrat ing tablet Take 1 tablet every 8 hours by oral route as needed. 07/24 completed Not Available Not Available Not Available fluticasone propionate 50 mcg/actuati on nasal spray,suspe nsion [place] 1 spray twice a day by intranasa l route. 05/09 completed Not Available Not Available Not Available sertraline 50 mg tablet TAKE 1 TABLET BY MOUTH EVERY DAY 06/10 completed Not Available Not Available Not Available ParaGard T 380A 380 square mm intrauterin e device Take 1 device by intrauter ine route. 05/09 completed Not Available Not Available Not Available loratadine 10 mg tablet TAKE 1 TABLET BY MOUTH EVERY DAY 09/20 completed Not Available Not Available Not Available Activella 1 mg-0.5 mg tablet Take 1 tablet every day by oral route. 02/09 completed Not Available Not Available Not Available levothyroxi ne 112 mcg tablet Take 1 tablet every day by oral route. 08/08 completed Not Available Not Available Not Available Adult Low Dose Aspirin 81 mg tablet,anushka yed release Take 1 tablet every day by oral route. 07/24 completed Not Available Not Available Not Available Synthroid 137 mcg tablet TK 1 T PO QAM 12/29 completed Not Available Not Available Not Available Jolivette 0.35 mg tablet TAKE ONE TABLET BY MOUTH DAILY 04/05 completed Not Available Not Available Not Available June (21) 1.5 mg-30 mcg tablet TAKE 1 TABLET BY MOUTH EVERY DAY 08/24 completed Not Available Not Available Not Available Premarin 0.625 mg/gram vaginal cream Insert 1 g twice a week by vaginal route. 01/24 completed Not Available Not Available Not Available ciprofloxac in 0.3 %-dexametha sone 0.1 % ear drops,suspe nsion SHAKE LIQUID AND INSTILL 4 DROPS TO AFFECTED EAR TWICE DAILY FOR 7 DAYS 12/07 completed Not Available Not Available Not Available nitrofurant oin monohydrate /macrocryst als 100 mg capsule TAKE 1 CAPSULE BY MOUTH EVERY 12 HOURS FOR 7 DAYS active Not Available Not Available No t Available lactulose 10 gram/15 mL oral solution Take 15 mL every day by oral route. 06/19 completed Not Available Not Available Not Available Charity-D 24 Hour 180 mg-240 mg tablet,exte nded release Take 1 tablet every day by oral route for 30 days. 2023 active Not Available Not Available Not Avai lable cholecalcif vaibhav (vitamin D3) 1,250 mcg (50,000 unit) capsule TAKE 1 CAPSULE BY MOUTH EVERY WEEK active Not Available Not Available No t Available Calcium with Vitamin D3 600 mg (carbonate) -10 mcg (400 unit) capsule Take 1 capsule twice a day by oral route. 06/19 completed Not Available Not Available Not Available Calcium with Vitamin D 600 mg-10 mcg (400 unit) tablet Take 1 tablet twice a day by oral route. 02/16 completed Not Available Not Available Not Available Vinate One 60 mg iron-1 mg tablet 12/29 completed Not Available Not Available Not Available calcium 600 mg (as carbonate)- vitamin D3 20 mcg (800 unit) tablet Take 1 tablet twice a day by oral route for 30 days. 02/16 completed Not Available Not Available Not Available Linzess 290 mcg capsule TAKE 1 CAPSULE BY MOUTH EVERY DAY 06/19 completed Not Available Not Available Not Available Diclegis 10 mg-10 mg tablet,anushka yed release TAKE 2 TABLETS BY MOUTH EVERY DAY 04/27 completed Not Available Not Available Not Available Kyleena 17.5 mcg/24 hr (up to 5 years) 19.5 mg intrauterin e device 10/10 completed Not Available Not Available Not Available Vitals Date Recorded Body height Body mass index (BMI) Body weight Oxygen saturation Oxygen saturation in Arterial blood by Pulse oximetry Heart rate Respiratory rate Body temperature Systolic blood pressure Diastolic blood pressure Provider Name and Address Organization Details Last Updated DateTime 5 157.48 cm 29.7 kg/m2 01077.4 1 g 98 % 98 % 78 /min 16 /min 97.4 [degF] 122 mm[Hg] 66 mm[Hg] ADAMARIS Hines [place] - [facility] 5 14:08:50 Date Recorded Body height Body mass index (BMI) Body weight Oxygen saturation Oxygen saturation in Arterial blood by Pulse oximetry Heart rate Body temperature Systolic blood pressure Diastolic blood pressure Provider Name and Address Organization Details Last Updated DateTime 5 157.48 cm 29.9 kg/m2 18671.6 3 g 97 % 97 % 72 /min 97.6 [degF] 120 mm[Hg] 72 mm[Hg] Lisa Irving [place] - [facility] 5 14:57:34 Date Recorded Body height Body mass index (BMI) Body weight Oxygen saturation Oxygen saturation in Arterial blood by Pulse oximetry Heart rate Systolic blood pressure Diastolic blood pressure Provider Name and Address Organization Details Last Updated DateTime 4 157.48 cm 29.2 kg/m2 24050.3 4 g 98 % 98 % 75 /min 120 mm[Hg] 74 mm[Hg] Lisa Irving [place] - [facility] 4 15:52:55 Date Recorded Body height Body mass index (BMI) Body weight Oxygen saturation Oxygen saturation in Arterial blood by Pulse oximetry Heart rate Systolic blood pressure Diastolic blood pressure Provider Name and Address Organization Details Last Updated DateTime 4 157.48 cm 30 kg/m2 59345.5 1 g 97 % 97 % 73 /min 118 mm[Hg] 82 mm[Hg] Lisa Irving [place] - [facility] 4 17:20:36 Date Recorded Body height Body mass index (BMI) Body weight Oxygen saturation Oxygen saturation in Arterial blood by Pulse oximetry Heart rate Body temperature Systolic blood pressure Diastolic blood pressure Provider Name and Address Organization Details Last Updated DateTime 4 157.48 cm 29.7 kg/m2 08785.1 1 g 98 % 98 % 78 /min 98.2 [degF] 116 mm[Hg] 70 mm[Hg] Sarah Bledsoe [place] - [facility] 4 16:54:38 Social History Question Answer Notes LastModified by Organizat ion Details LastModified Time Tobacco Smoking Status Never Smoker Tracey Padilla PA-C Attn: Accounting,[address] [place], [address], [facility] - [facility] 05/26/2016 11:18:55 Do You Have An Advance Directive? No Information not available 08/12/2016 Is Blood Transfusion Acceptable In An Emergency? Yes Information not available 08/12/2016 What Is Your Level Of Caffeine Consumption? Moderate Coffee. Information not available 08/08/2023 How Much Tobacco Do You Chew? None Information not available 05/26/2016 In The 14 Days Before Symptom Onset, Have You Had Close Contact With A Laboratory-confir med COVID-19 While That Case Was Ill? No Information not available 12/29/2020 In The 14 Days Before Symptom Onset, Have You Had Close Contact With A Person Who Is Under Investigation For COVID-19 While That Person Was Ill? No Information not available 12/29/2020 Have You Been To An Area Known To Be High Risk For COVID-19? No Information not available 12/29/2020 What Type Of Diet Are You Following? REGULAR Information not available 05/26/2016 Which Illicit Or Recreational Drugs Have You Used? None Information not available 08/12/2016 Education 2 Year College [employer] Information not available 05/26/2016 What Is The Highest Grade Or Level Of School You Have Completed Or The Highest Degree You Have Received? [id number] Information not available 12/29/2020 Have There Been Any Changes To Your Family Or Social Situation? No Information no t available 12/29/2020 Hard Of Hearing Or Deaf In One Or Both Ears? No Information not available 05/26/2016 Legally Blind In One Or Both Eyes? No Information no t available 05/26/2016 Live Alone Or With Others? With Others 3 Children Information not available 05/26/2016 What Was The Date Of Your Most Recent Tobacco Screening? 11/07/2024 [email or web address] Information not available 11/07/2024 How Many Children Do You Have? 4 [email or web address] Information not available 10/10/2018 Performs Monthly Self-breast Exam? No Information no t available 08/12/2016 Do You Have Any Pets? No Information not available 12/29/2020 Do You Use Protection During Sex? No Information not available 08/12/2016 What Is Your Relationship Status? Information not available 08/12/2016 Do You Use Your Seat Belt Or Car Seat Routinely? Yes Information not available 12/29/2020 Seat Belts Used Routinely Yes Information not available 08/12/2016 Are You Sexually Active? Yes Information not available 05/26/2016 Do You Have Smoke And Carbon Monoxide Detectors In Your Home? Yes Information not available 12/29/2020 Are You Passively Exposed To Smoke? No Information no t available 12/29/2020 How Much Tobacco Do You Smoke? No [email or web address] Information not available 05/23/2017 General Stress Level High Information not available 01/04/2017 Do You Use Sunscreen Routinely? Yes Information not available 08/12/2016 Has Tobacco Cessation Counseling Been Provided? No Information not available 02/16/2021 On What Date Was Tobacco Cessation Counseling Provided? 08/08/2023 Information not available 08/08/2023 How Many Years Have You Smoked Tobacco? 0 [email or web address] Information not available 05/23/2017 Sex: Female Functional Status Question Answer Note LastModified by Organizat ion Details LastModified Time Do you use any illicit or recreational drugs? No Information not available 12/29/2020 Do you or have you ever used any other forms of tobacco or nicotine? No Information not available 02/16/2021 What is your level of alcohol consumption? None Information not available 05/26/2016 Do you or have you ever used smokeless tobacco? Never used smokeless tobacco Information not available 09/25/2019 Are you currently employed? 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 Never used electronic cigarettes Information not available 09/25/2019 What is your exercise level? Occasional Information not available 05/26/2016 Mental Status None recorded. Family History Relationship Description Onset Age of this Age Resolved Age Notes LastModified by Organization Details LastModified Time Maternal Grandmother Diabetes mellitus [email or web address] Not available 2015 10:49:54 Father Malignant lymphoma [email or web address] Not available 2015 10:49:54 Maternal Aunt Disorder of thyroid gland [email or web address] Not available 2015 10:49:54 Medical History Condition Response Coronary Artery Disease N Other N Atrial Fibrillation N High Blood Pressure N Breast Cancer N Lung Disease N Depression N COPD N Blood Clots N Breast Problem N Anesthesia Complications N Headaches/Migraines N Anxiety Disorder N Muscle, Joint, or Bone Problems N Infertility N Polyps N Acid Reflux (GERD) N Cancer N Stroke N Endometriosis N High Cholesterol N Liver Disease N Headaches N Thyroid Problems N Kidney or Bladder Problems N GI Problems N Acne N Eating Disorder N Skin Problems N Anemia N Heart Attack ([place]) N Diabetes N Ovarian Cancer N Blood Transfusions N Seizures/Epilepsy N Abuse/Domestic Violence N Asthma N Allergies N Hepatitis N Heart Disease N Pre-Eclampsia N Heart Failure N Osteoporosis N Gynecological History Statement/Question Response Abnormal Pap Y Date of Last Mammogram 01/20/2021 Flow [place] Date of LMP 09/19/2024 On BCP's at Conception? N STIs/STDs N HPV Vaccine N Duration of Flow (days) 4 Most Recent Mammogram Age at Menarche 12 Current Control Method None Age at First Child 22 Sexually Active? Y Menses Monthly Y Date of Last Pap Smear 12/29/2020 Sexual Problems? N LMP Approximate Desired Control Method None Obstetrics History GPAL:G 6 P 3 1 2 4 Type Value Multiple Births 0 Full Term 3 Induced 2 Spontaneous 0 Premature 1 Living 4 Ectopics 0 Total 6 Immunizations Vaccine Type Date Status Note Provider Layo forrester and Address Organization Details Recorded Time Tdap 05/23/2018 completed Not Available [facility] 09/29/2019 02:43:37 HPV9 10/17/2019 completed Abbey Sotelo MA [facility] 10/17/2019 13:31:47 Past Encounters Encounter ID Performer Location Encounter Start Date Encounter Closed Date Diagnosis/Indication Diagnosis SNOMED-CT Code Diagnosis ICD10 Code Diagnosis Note [id number] Tammy Germain MD [facility] (Adult Med) [address] [place] [address] [id number] 0 05/26/2016 10:30:03 05/26/2016 14:59:05 Adult health examination 819178509 Z00.00 40YO Mauritian female here to establish care. Her only complaint today is hypothyroi dism that is controlled well with Synthyroid 112mcg Hypothyroidism 56028658 E03.9 Will recheck levels Patient insistent on Synthroid - if too expensive will do levothyrox ine [id number] Tammy Germain MD [facility] (Adult Med) [address] [place] [address] [id number] 06/09/2016 10:36:35 06/09/2016 13:33:28 Hyperlipidemia 79618961 E78.5 Given informatio n regarding high cholestero l today Hypothyroidism 93605104 E03.9 Synthroid 112mcg - she is getting the medication from [place] since her insurance only covers levothyrox ine Patient would like referral to [facility] - will do so Continue Synthroid 112g [id number] MD Christiano Colindres ([employer]) [address] [place] [address] [id number] 0 08/12/2016 10:57:17 08/13/2016 13:25:39 Gynecologic examination 49340131 Z01.419 Uses IUD (intrauterine device) contraception 069413411 Z97.5 Hypothyroidism 97579123 E03.9 [id number] MD Christiano Burgos (Adult Med) [address] [place] [address] [phone] 0 08/17/2016 10:43:46 08/18/2016 10:34:47 Tinnitus 46184350 H93.12 Advised to drink 8 bottles of water/day from her typical 1 bottle of water/dayW ill try meclizineD iscussed that there are no signs of infection at this time - will try meclizine TID PRN - RTC if no improvemen tPossibly 2/2 dehydratio n vs virus vs [id number] MD Christiano Colindres ([employer]) [address] [place] [address] [phone] 0 09/01/2016 11:14:49 09/01/2016 16:05:37 Abnormal cervical Papanicolaou smear 068885210 R87.619 R87.612 note patient has appt Dr Castañeda Human campbell lloma virus infection 382829517 R87.[address] reptococcus carrier 1514818968 103 Z22.330 Vulvitis 57463352 N76.2 [id number] MD [facility] ([place] [address]) 2 [facility] [address] 46298-269 3 10/08/2016 08:58:05 10/08/2016 09:55:36 Cervicovaginal cytology: Low grade squamous intraepithelial lesion 883357361 R87.743 [id number] MD Christiano Colindres ([employer]) [address] [place] [address] [id number] 0 01/04/2017 10:42:28 01/06/2017 13:08:55 Atrophic vaginitis 23049420 N95.2 Perimenopausal state 654 9554716 68142 Z78.0 Exposure t o sexually transmissible disorder 599641268 Z20.2 Screening mammography 24 917912 Z12.31 [facility] nning surveillance 502010724 Z30.09 [id number] MD Christiano Colindres ([employer]) [address] [place] [address] [id number] 0 02/09/2017 09:52:05 02/09/2017 15:25:26 Perimenopausal state 2553680212 94212 Z78.0 Atrophic vaginitis 07068 000 N95.2 Low grade squamous intraepithelial lesion on cervical Papanicolaou smear 8749305374 9105 R87.612 Acute urin elliot tract infection 117242552 N39.0 [id number] MD Christiano Colindres ([employer]) [address] [place] [address] [id number] 0 05/09/2017 11:13:09 05/09/2017 12:52:52 Abnormal cervical Papanicolaou smear 921424560 R87.619 R87.612 abnormal pap 6 months ago re-pap Atrophic vaginitis 63955 000 N95.2 Hypothyroidism 67734981 E03.9 Vulvitis 78966731 N76.2 [facility] nning surveillance 477224510 Z30.09 Candidiasis of vagina 72 324287 B37.3 Old episio antonio scarring 078115825 N90.89 [id number] MD Christiano Colindres ([employer]) [address] [place] [address] [id number] 0 05/23/2017 11:33:39 05/23/2017 15:33:17 Abnormal cervical Papanicolaou smear 179248895 R87.619 R87.612 abnormal pap 6 months ago re-pap reveals LGSIL + HPV REPAP in 04/2017 and HPV + results HPV - Johanna n papillomavirus test positive 053744714 R87.167 [id number] MD Christiano Colindres ([employer]) [address] [place] [address] [id number] 0 09/19/2017 09:40:25 09/19/2017 11:44:16 Cervicovaginal cytology: Low grade squamous intraepithelial lesion 458023923 R87.032 [id number] MD Christiano Colindres ([employer]) [address] [place] [address] 06464-371 0 01/05/2018 10:09:54 01/05/2018 12:06:16 Routine care 820716200 Z34.90 Gastroesop hageal reflux disease 922830287 K21.9 Hyperemesi s gravidarum 21072315 O21.0 Advanced m aternal age 714861474 O09.521 Recurrent miscarriage 10 0317489 N96 Depressive disorder 3548 9007 F32.9 Hypothyroidism 68576469 E03.[address] reptococcus carrier 5904808503 103 Z22.793 [id number] MD Christiano Colindres ([employer]) [address] [place] [address] 79218-924 0 01/20/2018 10:03:31 01/20/2018 11:55:38 Vitamin B12 deficiency (non anemic) 40072627 E53.8 [id number] MD Christiano Colindres ([employer]) [address] [place] [address] [id number] 0 01/24/2018 10:29:40 01/24/2018 11:54:59 Routine care 994300576 Z34.90 Constipation 20939718 K5 9.00 Gastroesop hageal reflux disease 958316111 K21.9 [id number] MD Christiano Colindres ([employer]) [address] [place] [address] [id number] 0 02/02/2018 10:35:31 02/07/2018 14:16:07 Routine care 982167628 Z34.90 Advanced m aternal age 148934178 O09.521 Hypothyroidism 90774650 E03.[address] reptococcus carrier 9135308993 103 Z22.330 HPV - Johanna n 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 Recurrent miscarriage 10 8430108 N96 placenta previa resolved 02/25/18 Advanced m aternal age 612772383 O09.[address] reptococcus carrier 7201727987 103 Z22.330 Depressive disorder 3548 9007 F32.9 Hypothyroidism 80840121 E03.9 Female sterilization 608 69749 Z30.2 papers signed 04/27/18 screening 2437 26088 Z36.9 Normal 5674669 2 Z34.82 [id number] MD Christiano Colindres ([employer]) [address] [place] [address] [phone] 0 05/11/2018 14:39:14 05/11/2018 15:41:40 Routine care 388283337 Z34.90 Follows [facility] for care Homozygous methylenetetrahydrofo late reductase mutation 6812756110 93527 E72.12 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Ne eds B12 injection because we were out last week on 05/11/2018 Advanced m aternal age 319999897 O09.521 Recurrent miscarriage 10 7248398 N96 placenta previa resolved 02/25/[address] reptococcus carrier 0362581214 103 Z22.330 HPV - Johanna n papillomavirus test positive 088702364 R87.619 Candidiasis of vagina 72 370881 B37.3 Exposure t o sexually transmissible disorder 614547590 Z20.2 Depressive disorder 3548 9007 F32.9 Hypothyroidism 38966754 E03.9 Small for gestational age fetus 604068068 O36.5920 04/19 EFW 23% [id number] MD Christiano Colindres ([employer]) [address] [place] [address] [phone] 0 05/23/2018 10:48:13 05/23/2018 13:16:00 screening 402608966 Z36.9 Routine an tenatal care 782259416 Z34.82 Follows [facility] for [place] Homozygous methylenetetrahydrofo late reductase mutation 0539410325 63808 E72.12 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Re cieved B12 shot today 05/23/18 Small for gestational age fetus 867913527 O36.5920 Last EFW 04/19 was 23% now its 42% on 05/19/18 Advanced m aternal age 636207624 O09.521 Recurrent miscarriage 10 5241193 N96 placenta previa resolved 02/25/[address] reptococcus carrier 5859203591 103 Z22.330 Will recieve PCN at delivery Depressive disorder 3548 9007 F32.9 Female sterilization 608 71400 Z30.2 papers signed 04/27/18 Hypothyroidism 79436505 E03.9 HPV - Johanna n papillomavirus test positive 804390042 R87.501 [id number] Cam Navarro MD [facility] ([employer]) [address] [place] [address] 04512-359 0 06/19/2018 15:06:45 06/19/2018 16:44:14 Routine care 124847330 Z34.82 Follows [facility] for US Homozygous methylenetetrahydrofo late reductase mutation 7731230916 84961 E72.12 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 Rec'd last B12 on 06/19/2018 not due until 07/20/2018 - mds.Go weekly to get NST/BPP done on Tuesday' at [facility]. 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 Small for gestational age fetus 678140880 O36.5920 Last EFW 04/19 was 23% on 06/30/18. Advanced m aternal age 925003005 O09.521 Recurrent miscarriage 10 7751927 N96 placenta previa resolved 02/25/[address] reptococcus carrier 1618220170 103 Z22.330 Will receive PCN at delivery [id number] MD [facility] ([employer]) [address] [place] [address] 19673-846 0 07/17/2018 11:23:45 07/17/2018 13:46:23 Heterozygous methylenetetrahydrofo late reductase mutation 0252204170 12472 E72.12 B12 at next visit. Routine an tenatal care 716392127 Z34.82 Follows [facility] for US. Rec'd last B12 on 06/19/2018 not due until 07/20/2018 - mds.Go weekly to get NST/BPP done on Tuesday's at [facility]. - induced hypertension 51185972 O13.9 Advanced m aternal age 310487315 O09.521 Small for gestational age fetus 373580863 O36.5920 Last EFW was 23% on 06/30/18. NST 06/21 on 07/10/18. [id number] [facility]) [address] [place] [address] 99424-285 0 07/24/2018 16:45:17 07/25/2018 15:30:14 Routine care 197704687 Z34.83 Follows [facility] for US. Rec'd last B12 on 07/17/2018 not due until 08/16/2018 - mds.Go weekly to get NST/BPP done on Tuesday's at [facility]. Advanced m aternal age 237349485 O09.423 [id number] [facility]) [address] [place] [address] 27651-673 0 07/31/2018 11:08:36 07/31/2018 13:24:11 Routine care 156484515 Z34.83 Follows [facility] for US. Rec'd last B12 on 07/17/2018 not due until 08/16/2018 - mds.Go weekly to get NST/BPP done on s at [facility]. 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 Female sterilization 608 52055 Z30.2 papers signed 8/16/18 Depressive disorder [address] chago carrier 7874432216 103 Z22.330 Will receive PCN at delivery HPV - Johanna n papillomavirus test positive 551450361 R87.619 Hypothyroidism 73609397 E03.9 [id number] [facility]) [address] [place] [address] 96153-040 0 09/19/2018 16:37:00 09/20/2018 12:09:39 Depressive disorder 46859930 F32.9 Coping well on her own. Declines medication or counseling at this time. Family [facility] nning surveillance 451765791 Z30.09 Patient was unable to do PAP today due to starting menstrual cycle - will reschedule when Najma baumat ion is complete with [facility]. 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 [id number] [facility]) [address] [place] [address] [id number] 0 10/03/2018 16:33:30 10/03/2018 20:32:01 [id number] MD Christiano Colindres ([employer]) [address] [place] [address] [phone] 0 10/10/2018 16:52:58 10/11/2018 12:21:39 Depressive disorder 37027384 F32.9 Coping well on her own. Declines medication or counseling at this time. Family [facility] nning surveillance 515853895 Z30.09 Mirena insertion 10/10/18. care 18836961 8 Z39.2 Vaginal delivery 08/07/2018 at 39w1d Insertion of intrauterine contraceptive device 69190490 Z30.430 Hypothyroidism 05780301 E03.9 Exposure t o sexually transmissible disorder 961028054 Z20.2 [id number] MD Christiano Colindres ([employer]) [address] [place] [address] 62162-892 0 12/07/2018 16:22:39 12/08/2018 12:02:38 Insertion of intrauterine contraceptive device 78484950 Z30.430 removal of IUD Family [facility] nning surveillance 203628594 Z30.09 Mirena insertion 10/10/18. Female sterilization 608 86842 Z30.2 IDPH sterilizat ion papers signed 12/07/18 Exposure t o sexually transmissible disorder 052453414 Z20.2 Perimenopausal state 128 9410866 44033 Z78.0 [id number] [facility]) [address] [place] [address] 87726-824 0 04/05/2019 16:45:56 04/06/2019 12:00:58 Hypothyroidism 90065546 E03.9 Candidiasis of vagina [address] reptococcus carrier 4946320037 103 Z22.330 [facility] nning surveillance 334131132 Z30.09 [id number] [facility]) [address] [place] [address] 31080-174 0 09/26/2019 11:16:02 09/26/2019 14:08:25 Acute urinary tract infection 717833393 N39.0 Hypothyroidism 02820977 E03.9 [facility] nning surveillance 913840949 Z30.09 Dysuria-fr equency syndrome 6254955 R30.0 R35.0 Homozygous methylenetetrahydrofo late reductase mutation 5402454483 01300 E72.12 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 [id number] Cam Navarro MD [facility] ([employer]) [address] [place] [address] 76087-283 0 10/17/2019 12:05:18 11/01/2019 12:26:03 Gynecologic examination 07918940 Z01.419 Depressive disorder 3548 9007 F32.9 Coping well on her own. Declines medication or counseling at this time. HPV - Johanna n papillomavirus test positive 313006035 R87.619 Gardasil - #1 10/17/2019 Screening mammography 24 950880 Z12.31 Exposure t o sexually transmissible disorder 392848007 Z20.2 Hypothyroidism 78233167 E03.9 Continue levothyrox ine 137mcg. Return 10/29 for recheck TSH. Acute urin elliot tract infection 317458312 N39.0 Completed Macrobid and Penicillin . Still experienci ng symptoms. Administra tion of viral vaccine 64788062 Z23 Gardasil #1 10/17/2019 [id number] MD Christiano Colindres ([employer]) [address] [place] [address] 45646-955 0 04/07/2020 16:13:38 04/08/2020 16:50:25 Hypothyroidism 13922882 E03.9 Candidiasis of vagina 72 080144 B37.3 [facility] nning surveillance 966754861 Z30.09 Polycystic ovaries 22442 008 E28.2 Active or passive immunization 187687591 Z23 Acute urin elliot tract infection 017618226 N39.0 Completed Macrobid and Penicillin . Still experienci ng symptoms. 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 Offered B12 injection, but the patient declines today. [id number] MD Christiano Colindres ([employer]) [address] [place] [address] [phone] 0 02/16/2021 15:23:42 02/20/2021 09:12:09 Infection by Trichomonas 07585201 A59.9 [facility] nning surveillance 986545079 Z30.09 [id number] MD Christiano Colbert (Adult Med) [address] [place] [address] 62370-904 0 01/18/2022 14:39:39 01/19/2022 10:50:28 Venereal disease screening 364756837 Z11.3 [id number] DANIELA MAY (Adult Med) [address] [place] [address] 17576-738 0 08/24/2022 14:19:36 09/01/2022 15:36:35 Adult health examination 968418043 Z00.00 47yo F with h/o hypothyroi dism is establishi ng IM care.- Will get baseline labs Overweight 575853120 E66 .3 Recommende d daily exercise with a goal of 150 min/week of moderate-s trenuous activity and a balanced diet with an emphasis on fruits, vegetables , whole grains, legumes, lean protein, and mono/polyu nsaturated fats. Hypothyroidism 70180479 E03.9 History of hypothyroi dism, on Synthroid 125mcg. Establishe d with endocrinol ogist Dr. Tatiana Quintana. Venereal d isease screening 368627535 Z11.3 Patient is requesting comprehens meredith STI screening. Safe sex practices discussed. Candidal vulvovaginitis 08547390 B37.31 Patient has a history of matthew infections and is requesting refill.- Prescribed fluconazol e and nystatin prn Acute bronchitis 7656726 2 J20.9 Pt presents with a lingering productive cough after a cold about month ago. Pt had frequent nightly coughing fits that have mostly improved. Denies fever, chills, n, v, d, nasal congestion . Unremarkab le exam. Neg COVID and FLU testing.- Prescribed Tessalon perles for cough- Instructed patient to return to clinic if symptoms do not improve [id number] DANIELA MAY (Adult Med) [facility] [place] [address] 11/25/2022 09:02:06 12/03/2022 11:49:00 Intermittent palpitations 630320088 R00.2 ~4 episodes of palpitatio ns with associated headaches, dizziness, blurred vision. Suspect component of anxiety contributi ng to symptoms. Will send for cardiac evaluation . Hyperlipidemia 18297518 E78.5 Last labs Aug 2022- TOT 259, HDL 52, LDL 176, TRI 167. She has been managing with [facility]. Repeat fasting labs today. Fatigue 20825772 R53.83 Pt reports h/o vitamin deficienci es, will recheck levels today. Hypothyroidism 29823015 E03.9 History of hypothyroi dism, on Synthroid 125mcg. Establishe d with endocrinol ogist Dr. Tatiana Quintana. Last TSH/T4 wnl. Repeat today. Dizziness 008321520 R42 Follow up labs. Cardiac eval as above. [id number] DANIELA MAY (Adult Med) [address] [place] [address] [phone] 0 06/10/2023 16:10:47 2023 12:41:09 Candidiasis of vagina 13989979 B37.31 Admits to irritation of vagina with history of candidiasi s. Does well with below medication s.- refilled terconazol e and fluconazol e- RTC if symptoms do not improve Atopic dermatitis 619645 01 L20.9 Pt states she gets eczema when the seasons change, worse with cold weather. Has tried hydrocorti sone cream with good relief- ordered hydrocorti sone cream, educated on use Hyperlipidemia 90447577 E78.5 Last labs November 2022- TOT 253, HDL 56, LDL 179, TRI 101. She has been managing with [facility].- Repeat fasting labs- patient did not fast today, will return next week for labs Hypothyroidism 90544822 E03.9 History of hypothyroi dism, on Synthroid 125mcg. Establishe d with endocrinol ogist Dr. Tatiana Quintana. Last TSH/T4 1.290/1.78 , WNL.- Repeat today Overweight 088974168 E66 .3 Recommende d daily exercise with a goal of 150 min/week of moderate-s trenuous activity and a balanced diet with an emphasis on fruits, vegetables , whole grains, legumes, lean protein, and mono/polyu nsaturated fats. [id number] MD Christiano Quiles (Adult Med) [address] [place] [address] 47096-645 0 08/08/2023 14:26:48 08/08/2023 15:09:12 Body mass index 25-29 - overweight 005130752 Z68.27 27.6 Seborrheic dermatitis 50 702285 L21.9 Acute bronchitis 4059284 2 J20.9 [id number] MD Christiano Quiles (Adult Med) [address] [place] [address] 25762-576 0 08/24/2023 16:07:04 08/24/2023 16:44:05 Generalized rash 383997692 R21 Pruritic rash around jona eyes and chinContin ue ketaconazo le around eyesAquaph ore for drynesCera ve for face Depression screening 171 654787 Z13.31 PHQ9-negat meredith Mental hea lth screening 634250148 Z13.39 GAD7- negative [id number] MD Christiano Quiles (Adult Med) [address] [place] [address] 21099-502 0 09/20/2023 12:21:19 09/22/2023 15:11:28 Depression screening 589170377 Z13.31 PHQ9-negat meredith (0 out of 27) Mental hea lth screening 447854394 Z13.39 GAD7- negative (3 out of 21) Body mass index 25-29 - overweight 251296950 Z68.27 BMI 27.7 Otitis externa 4125571 H 60.91 Use drops as directedDo not use qtips in earUse warm water and hydrogen peroxide to clean ears outMake sure ears are completely dry [id number] MD Christiano Quiles (Adult Med) [address] [place] [phone] 0 12/08/2023 16:04:54 12/09/2023 14:58:32 Adult health examination 945300771 Z00.00 Routine labs- patient to return fasting Depression screening 171 371461 Z13.31 PHQ9- Negative (3 out of 27) Mental hea lth screening 350855911 Z13.39 GAD7- Negative (0 out of 21) Hyperlipidemia 96325873 E78.5 Labs ordered today Hypothyroidism 69505809 E03.9 C/W levothyrox ine 125mcglabs ordered today Amaurosis fugax 51408133 G45.3 Bilateral eyesCardia c workup in 2022 Allergic disposition 609 200058 T78.40XD [id number] MD Christiano Quiles (Adult Med) [address] [place] [phone] 12/27/2023 14:31:18 01/06/2024 10:19:48 Body mass index 25-29 - overweight 286514787 Z68.28 BMI 28.5 Fall W19.XXXA XR orderedSta rt meloxicam 7.5mg daily x 14 days- DO NOT TAKE OTHER NSAIDS Facial laceration 875172 008 S01.81XA Discussed keeping laceration s clean with soap and warm waterDo not peel off scabsStart mupirocin twice daily [id number] Jolynn Redd MD [facility] (Adult Med) [address] [place] [address] 02/02/2024 15:43:54 02/03/2024 13:50:49 Varicose veins of lower extremity 05119494 I83.93 Screening for malignant neoplasm of colon 319907276 Z12.11 Facial laceration 623718 008 S01.81XA Discussed keeping laceration s clean with soap and warm waterAlmos t fully resolved- some discolorat ion stillDiscu ssed with patient about NOT using products for skin whitening Osteoarthr itis of knee 978046980 M17.9 Know that arthritis will cause more pain on some days than on others.Sta y at a healthy weight. Stretch to help prevent stiffness and to prevent injury before you exercise. You may enjoy gentle forms of yoga to help keep your knee joints and muscles flexible.W alk instead of jog.Ride a bike. This makes your thigh muscles stronger and takes pressure off your knee.Wear well-fitti ng and comfortabl e shoes.Exer cise in chest-deep water. This can help you exercise longer with less pain.Avoid exercises that include squatting or kneeling. They can put a lot of strain on your knees. A knee brace may help keep your knee stable and prevent pain.You also can use other things to make life easier, such as a higher toilet seat and handrails in the bathtub or shower.Darell e pain medicines exactly as directed.D o not wait until you are in severe pain. You will get better results if you take it sooner. Do not take two or more pain medicines at the same time unless the doctor told you to. Many pain medicines have acetaminop hen, which is Tylenol. Too much acetaminop hen (Tylenol) can be harmful. Many people take the supplement s glucosamin e and chondroiti n for osteoarthr itis. While medical research has not shown a significan t positive effect on arthritis, many people do find that pain lessens while taking these supplement s. Depression screening 171 037578 Z13.31 PHQ9- Negative (4 out of 27) Mental hea lth screening 660418421 Z13.39 GAD7- Negative (2 out of 21) Body mass index 25-29 - overweight 175905773 Z68.29 BMI 29.2 [id number] [facility] [address] [place] [phone] 06/04/2024 17:05:22 06/05/2024 12:13:41 Laceration of left lower leg [id number] 0006233 S81.812A Obesity 585613763 E66.8 BMI 30 [id number] Joylnn Redd MD [facility] (Adult Med) [address] [place] [phone] 07/02/2024 16:46:55 07/14/2024 09:57:32 Herpes labialis 1620586 B00.1 Start valacyclov ir 1 gram BID x 1 daylabs today Venereal d isease screening 924431339 Z11.3 STI screening done today Hyperlipidemia 86033781 E78.5 Labs ordered today Prediabetes 349631663 R7 3.03 Repeat labs today Adult heal th examination 171676406 Z00.00 Routine labs Overweight 691668013 E66 .3 BMI 29.7 Depression screening 171 649092 Z13.31 PHQ9- Negative (0 out of 27) Mental hea lth screening 485332055 Z13.39 GAD7- Negative (0 out of 21) [id number] Jolynn Redd MD [facility] (Adult Med) [address] [place] [phone] 09/26/2024 13:55:12 10/03/2024 12:14:59 Overweight 414703177 E66.3 BMI 29.7 Hypothyroidism 46831528 E03.9 C/W levothyrox ine 125mcg- gets from endocrinol ogylabs ordered today Depression screening 171 146676 Z13.31 PHQ9- Mild (8 out of 27) Mental hea lth screening 306701968 Z13.39 GAD7- Mild (7 out of 21) 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 Doing 30 minutes of exercise every day is good for your body and mind. Start slowly if you find it difficult to get started. If you already exercise, continue doing so. Plan something nice for yourself every day. Include activities you have enjoyed in the past. Get enough sleep. Eat a balanced diet. If you are not hungry, eat small snacks instead of large meals. Do not drink alcohol, use illegal drugs, or take medication s that your doctor has not prescribed . They may interfere with your treatment. Spend time with family and friends. It may be helpful to talk openly about your depression with people you trust. Take your medication s exactly as prescribed . Don't make important life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
== END 2025-02-26 15:50 | disposition home or self-care (01) ==
PROVIDERS: Visit Provider Obstetrics & Gynecology
DX: Z12.31 Encounter for screening mammogram for malignant neoplasm of breast (principal)
CPT/HCPCS: 77063; 77067

== ENCOUNTER 2025-08-27 22:09 | Emergency (ER) | payer OTHER, SELFPAY ==
--- NOTE | ~2025-08-27 | XR_ITS ---
XR chest 1V portable INDICATION:SOB . REFERENCE: None FINDINGS: A single AP of the chest demonstrates enlarged heart. The lungs are clear. There is no evidence of pneumothorax or pleural effusion. IMPRESSION: No acute pulmonary findings. Reviewed, dictated and finalized at location S. PUMPER
[2025-08-27 22:21] VITALS: BP 122/85; PULSE 82; RESP 18; TEMP 36.6; O2SAT 100
--- NOTE | 2025-08-27 22:50 | ED.URI ---
HPI - URI/Sore Throat General Chief Complaint: Upper Respiratory Infection Stated Complaint: not feeling well since Tuesday Time Seen by Provider: 08/27/25 22:36 History of Present Illness HPI Narrative: 50-year-old female with no pertinent past medical history presenting to the emergency department with viral syndrome symptoms. She has been having myalgias, chills, body aches, fever, sore throat and subjective dyspnea since Tuesday. She felt terrible yesterday and took anti-inflammatory medications and feels better today. She tried going to work but was turned away and was told that she needs to get tested and that doctor's note. She does not like coming to the hospital but otherwise obliged. She states she feels better than yesterday but still having some mild symptoms. Was otherwise in her normal state of health. She is wearing a mask and ambulatory without any difficulty. No productive cough, no chest pain, nausea, vomiting, diarrhea, abdominal pain or back pain. Related Data Home Medications ?Medication ?Instructions ?Recorded ?Confirmed ?Last Taken ?Type levothyroxine 125 mcg tablet 125 mcg PO DAILY 11/01/22 11/01/22 Unknown History (Synthroid) Allergies Allergy/AdvReac Type Severity Reaction Status Date / Time No Known Allergies Allergy Verified 08/14/25 13:27 Review of Systems Review of Systems: as reviewed above in HPI All systems reviewed & are unremarkable except as noted in HPI and below PMFSH Social History Social History Smoking status: Never smoker Alcohol intake: never Substance use: never Substance use type: does not use Lack of Transportation: No Lack of Food: Never True Current Housing: I Have Housing Concerned About Future Housing: No Difficulty Paying Gas/Electric Bills: No Difficulty Paying for Meds: No Currently Unemployed: No Difficulty w/ Childcare or Family Care: No Exam Narrative: GENERAL: [Well-appearing, well-nourished, and in no acute distress.] HEAD: [Normocephalic, atraumatic.] EYES: [PERRLA and EOMI.] ENT: Nares clear, no rhinorrhea or epistaxis. Mucous membranes moist. NECK: Supple. CHEST: [Clear to auscultation. No respiratory distress.] HEART: [Regular rate and rhythm]. No murmur heard. [Normal peripheral pulses.] ABDOMEN: [Soft, nondistended], [nontender], [No rigidity or guarding] EXTREMITIES: Normal range of motion. [No edema.] SKIN: Warm, dry, no rash. NEURO: [No focal deficits]. Alert and oriented [x3.] PSYCH: [Normal mood and affect.] Course Vital Signs Vital signs: Vital Signs Temperature 36.6 C 08/27/25 22:21 Pulse Rate 82 08/27/25 22:21 Respiratory Rate 18 08/27/25 22:21 Blood Pressure 122/85 08/27/25 22:21 Pulse Oximetry 100 08/27/25 22:21 Oxygen Delivery Room Air 08/27/25 22:21 Temperature 36.6 C 08/27/25 22:21 Pulse Rate 82 08/27/25 22:21 Respiratory Rate 18 08/27/25 22:21 Blood Pressure 122/85 08/27/25 22:21 Pulse Oximetry 100 08/27/25 22:21 Oxygen Delivery Room Air 08/27/25 22:21 [facility] Narrative Medical decision making narrative: 50-year-old female with no pertinent past medical history presenting to the emergency department with viral syndrome symptoms. She has been having myalgias, chills, body aches, fever, sore throat and subjective dyspnea since Tuesday. She felt terrible yesterday and took anti-inflammatory medications and feels better today. She tried going to work but was turned away and was told that she needs to get tested and that doctor's note. She does not like coming to the hospital but otherwise obliged. She states she feels better than yesterday but still having some mild symptoms. Was otherwise in her normal state of health. She is wearing a mask and ambulatory without any difficulty. No productive cough, no chest pain, nausea, vomiting, diarrhea, abdominal pain or back pain. Symptoms consistent with COVID, flu, RSV or other viral syndrome. Chest x-ray obtained to rule out pneumonia. Viral swabs obtained. Patient is already taking appropriate treatment regimen at home with anti-inflammatories and symptom control and will be safely discharged. Differential Diagnosis Differential Diagnosis: Symptoms consistent with COVID, flu, RSV or other viral syndrome. Chest x-ray obtained to rule out pneumonia. Lab Data [facility] Lab Attestation statement: I personally reviewed the patient's lab results. Labs: Lab Results 12/16/25 Range/Units 22:46 Influenza A (RT-PCR) Negative (Negative) Influenza B (RT-PCR) Negative (Negative) RSV (RT-PCR) Negative (Negative) SARS-CoV-2 RNA (RT-PCR) Positive A (Negative) Imaging Data Attestation: I personally reviewed and interpreted this imaging study as follows: My impression: Impressions Chest X-Ray 08/27/25 22:47 IMPRESSION: No acute pulmonary findings. Radiologist's impression: ITS Impressions Chest X-Ray 08/27/25 22:47 IMPRESSION: No acute pulmonary findings. Discharge Plan Discharge Clinical Impression: COVID, Viral syndrome Patient Disposition: Home Condition: Stable Instructions: Antibiotic Form, Viral Syndrome (ED), COVID-19 (Coronavirus Disease 2019) (ED) Additional Instructions: symptoms consistent with acute viral syndrome. Continue taking your medications at home for symptom control. Tylenol and ibuprofen every 6-8 hours for fever and symptoms /pain control. Return with any emergent concerns otherwise follow-up with regular doctor. Wear a mask if you are feeling feverish or having a cough when around others. Patient Language: Tongan Prescriptions: No Action levothyroxine [Synthroid] 125 mcg tablet 125 mcg PO DAILY Follow-up/Referrals: UNKNOWN,DOCTOR [Primary Care Provider] Time of Disposition: 23:32
[2025-08-27 23:30] LABS: Influenza A QL RT-PCR Negative (Negative); Influenza B QL RT-PCR Negative (Negative); RSV RNA, RT-PCR Negative (Negative); SARS-CoV-2 RNA PCR Positive (Negative)
[2025-08-27 23:41] VITALS: BP 127/88; PULSE 77; RESP 16; O2SAT 100; O2SAT 99
== END 2025-08-27 23:42 | disposition home or self-care (01) ==
LOC: ANHED 23:36
PROVIDERS: Emergency Provider Student in an Organized Health Care Education/Training Program
DX: U07.1 COVID-19 (principal)
CPT/HCPCS: 71045; 87637; 99283